=== PATIENT | male | born 1995 | race Hispanic/Latino ===

== ENCOUNTER 2016-09-01 11:13 | Emergency (ER) | payer OTHER ==
--- NOTE | 2016-09-01 11:56 | EDDOCDS ---
Nurse's Notes [facility] Name: Basil Roca Age: 21 yrs Sex: Male : 1995 Arrival Date: 09/01/2016 Time: 11:13 Bed Triage 1 Private MD: Elisabeth [facility] Diagnosis: Concussion without loss of consciousness Presentation: 09/01 11:20 Presenting complaint: Patient states: hit my head on a trailer yesterday. no LOC. has srm major headache, dizzy and couldn't stand up straight. felt like the tub was moving when showering this am and photophobia. This patient has no additional risk factors. Mechanism of Injury: resulted from impacting a hard surface. Adult Sepsis Screening: The patient does not have new or worsening altered mentation. Patient's respiratory rate is less than 22. Systolic blood pressure is greater than 100. Patient has a qSOFA score of 0- Negative Sepsis Screen. Suicide/Homicide risk assessment- the patient denies having any suicidal and/or homicidal ideations and does not present with any other emotional, behavioral or mental health complaints. 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 Transition of care: Patient was received from [facility]. 11:20 Acuity: AMARA Level 4 srm 11:20 Method Of Arrival: Walkin/Carried/Asstd srm Triage Assessment: 11:22 General: Appears in no apparent distress, Behavior is appropriate for age, cooperative. srm Pain: Pain currently is 8 out of 10 on a pain scale. Pt Declines HIV testing. Neurological: Level of Consciousness is awake, alert, Oriented to person, place, Moves all extremities. Full function Gait is steady, Speech is normal, Facial symmetry appears normal, Reports dizziness, headache photophobia. Historical: - Allergies: no known allergies; - Home Meds: 1. none - PMHx: none; - PSHx: left leg; right arm; - Social history: Smoking status: Patient states former smoker of tobacco. No barriers to communication noted, The patient speaks fluent Kenyan, Speaks appropriately for age. - Family history: Not pertinent. - : The pt / caregiver states he / she is not on anticoagulants. Home medication list is obtained from the patient. - Exposure Risk Screening:: None identified. Screenin:53 Screening information is obtained from the patient. Fall risk: No risks identified. srm Assistance ADL's: requires no assistance with activities of daily living. Abuse/DV Screen: The patient / caregiver reports he/she is: not in a situation that causes fear, pain or injury. Nutritional screening: No deficits noted. Advance Directives: There is no active DNR order. home support is adequate. Assessment: 11:53 General: Appears in no apparent distress, Behavior is appropriate for age, cooperative. srm Neurological: Level of Consciousness is awake, alert, Oriented to person, place, time, Medical Biller Coder are equal bilaterally Moves all extremities. Full function Gait is steady, Speech is normal, Facial symmetry appears normal, Pupils are PERRLA. Respiratory: No deficits noted. GI: No deficits noted. Vital Signs: 11:16 BP 133 / 74; Pulse 79; Resp 18; Temp 96.1(O); Pulse Ox 100% on R/A; Weight 51.71 kg elp (R); Height 5 ft. 5 in. (165.10 cm) (R); Pain 8/10; 11:16 Body Mass Index 18.97 (51.71 kg, 165.10 cm) [facility] Vitals: 11:16 Log In Time: September 01, 2016 at 11:14. elp [place] Coma Score: 11:20 Eye Response: spontaneous(4). Verbal Response: oriented(5). Motor Response: obeys [facility] commands(6). Total: 15. ED Course: 11:15 Patient visited by Vivian Em PCA. elp 11:15 Elisabeth [facility] is Private Physician. elp 11:15 Patient moved to Waiting elp 11:16 Patient moved to Pre RCE elp 11:17 Patient visited by Vivian Em PCA. elp 11:22 Triage Initiated srm 11:23 Patient moved to Triage 1 srm 11:25 [facility]it Ramirez [facility] btw 11:25 Balta Herrera MD is Attending Physician. btw 11:25 Patient visited by Sumit Ramirez PA. btw 11:48 Scotty Ivey [facility] is Referral Physician. btw 11:53 The patient / caregiver is instructed regarding the plan of care and ED course. srm Accompanied by Friend, Patient has correct armband on for positive identification. 11:53 No IV's were initiated during this patient's visit. No procedures done that require srm assistance. Order Results: There are currently no results for this order. Outcome: 11:48 Discharge ordered by Provider. btw 11:53 Discharge Assessment: Patient awake, alert and oriented x 3. No cognitive and/or srm functional deficits noted. Patient verbalized understanding of disposition instructions. patient administered narcotics - no. The following High Risk Discharge criteria are identified: None. Discharged to home ambulatory, with friend. Condition: good Condition: stable. Discharge instructions given to patient, Instructed on discharge instructions, follow up and referral plans. medication usage, Demonstrated understanding of instructions, medications, Pt was receptive of discharge instructions/ teaching. Prescriptions given X 1. No special radiology studies were completed. Property :Personal belongings accompany Pt. 11:54 Patient left the ED. srm Signatures: Phyllis Vinson RN RN srm [place], Brandon, PA PA btw Vivian Em, MAYKEL DIRECTOR PRIVATE elp FRANCINE
--- NOTE | 2016-09-01 11:56 | EDDOCDS ---
Physician Documentation [facility] Name: Basil Roca Age: 21 yrs Sex: Male : 1995 Arrival Date: 09/01/2016 Time: 11:13 Bed Triage 1 Private MD: Elisabeth [facility] Disposition: 09/01/16 11:48 Discharged to Home/Self Care. Impression: Concussion without loss of consciousness. - Condition is Stable. - Discharge Instructions: Concussion, Adult, [id number]. - Prescriptions for Diclofenac Sodium 75 mg Oral Tablet, Delayed Release (E.C.) - take 1 tablet by ORAL route 2 times per day; 30 tablet. - Medication Reconciliation, Local Pharmacy Hours form. - Follow up: Scotty Ivey [facility]; When: Call to arrange an appointment; Reason: Further diagnostic work-up, Recheck today's complaints, Continuance of care. - Problem is new. - Symptoms are unchanged. Historical: - Allergies: no known allergies; - Home Meds: 1. none - PMHx: none; - PSHx: left leg; right arm; - Social history: Smoking status: Patient states former smoker of tobacco. No barriers to communication noted, The patient speaks fluent Divehi, Speaks appropriately for age. - Family history: Not pertinent. - : The pt / caregiver states he / she is not on anticoagulants. Home medication list is obtained from the patient. - Exposure Risk Screening:: None identified. Vital Signs: 09/01 11:16 BP 133 / 74; Pulse 79; Resp 18; Temp 96.1(O); Pulse Ox 100% on R/A; Weight 51.71 kg / elp 114 lbs (R); Height 5 ft. 5 in. (165.10 cm) (R); Pain 8/10; 11:16 Body Mass Index 18.97 (51.71 kg, 165.10 cm) elp [place] Coma Score: 11:20 Eye Response: spontaneous(4). Verbal Response: oriented(5). Motor Response: obeys srm commands(6). Total: 15. MDM: 11:50 Financial registration complete. lg Signatures: Phyllis Vinson RN RN srm [place], LoriLee, Juan Reg Sumit Maradiaga PA PA btw MTDD
--- NOTE | 2016-09-03 12:56 | EDDOCDS ---
Physician Documentation [facility] Name: Basil Roca Age: 21 yrs Sex: Male : 1995 Arrival Date: 09/01/2016 Time: 11:13 Bed Triage 1 Private MD: Elisabeth [facility] Disposition: 09/01/16 11:48 Discharged to Home/Self Care. Impression: Concussion without loss of consciousness. - Condition is Stable. - Discharge Instructions: Concussion, Adult, [id number]. - Prescriptions for Diclofenac Sodium 75 mg Oral Tablet, Delayed Release (E.C.) - take 1 tablet by ORAL route 2 times per day; 30 tablet. - Medication Reconciliation, Local Pharmacy Hours form. - Follow up: Scotty Ivey [facility]; When: Call to arrange an appointment; Reason: Further diagnostic work-up, Recheck today's complaints, Continuance of care. - Problem is new. - Symptoms are unchanged. Historical: - Allergies: no known allergies; - Home Meds: 1. none - PMHx: none; - PSHx: left leg; right arm; - Social history: Smoking status: Patient states former smoker of tobacco. No barriers to communication noted, The patient speaks fluent Latvian, Speaks appropriately for age. - Family history: Not pertinent. - : The pt / caregiver states he / she is not on anticoagulants. Home medication list is obtained from the patient. - Exposure Risk Screening:: None identified. Vital Signs: 09/01 11:16 BP 133 / 74; Pulse 79; Resp 18; Temp 96.1(O); Pulse Ox 100% on R/A; Weight 51.71 kg / elp 114 lbs (R); Height 5 ft. 5 in. (165.10 cm) (R); Pain 8/10; 11:16 Body Mass Index 18.97 (51.71 kg, 165.10 cm) elp [place] Coma Score: 11:20 Eye Response: spontaneous(4). Verbal Response: oriented(5). Motor Response: obeys srm commands(6). Total: 15. MDM: 11:50 Financial registration complete. lg 12:06 [facility] Payment Agreement was scanned into [employer] and attached to record. lg 09/02 10:25 T-Sheet-- Draft Copy was scanned into [employer] and attached to record. gb Signatures: Phyllis Vinson, RN RN srm Yue Wilburn, Reg Reg gb Concetta Bills, Reg Reg lg Sumit Ramirez PA PA btw The chart was reviewed and I authenticate all verbal orders and agree with the evaluation and treatment provided.Attachments: 09/01 12:06 [facility] Payment Agreement lg 09/02 10:25 T-Sheet-- Draft Copy gb Chart Complete MTDD
--- NOTE | 2016-09-03 12:56 | EDDOCDS ---
Nurse's Notes [facility] Name: Basil Roca Age: 21 yrs Sex: Male : 1995 Arrival Date: 09/01/2016 Time: 11:13 Bed Triage 1 Private MD: Elisabeth [facility] Diagnosis: Concussion without loss of consciousness Presentation: 09/01 11:20 Presenting complaint: Patient states: hit my head on a trailer yesterday. no LOC. has srm major headache, dizzy and couldn't stand up straight. felt like the tub was moving when showering this am and photophobia. This patient has no additional risk factors. Mechanism of Injury: resulted from impacting a hard surface. Adult Sepsis Screening: The patient does not have new or worsening altered mentation. Patient's respiratory rate is less than 22. Systolic blood pressure is greater than 100. Patient has a qSOFA score of 0- Negative Sepsis Screen. Suicide/Homicide risk assessment- the patient denies having any suicidal and/or homicidal ideations and does not present with any other emotional, behavioral or mental health complaints. 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 Transition of care: Patient was received from [facility]. 11:20 Acuity: AMARA Level 4 srm 11:20 Method Of Arrival: Walkin/Carried/Asstd srm Triage Assessment: 11:22 General: Appears in no apparent distress, Behavior is appropriate for age, cooperative. srm Pain: Pain currently is 8 out of 10 on a pain scale. Pt Declines HIV testing. Neurological: Level of Consciousness is awake, alert, Oriented to person, place, Moves all extremities. Full function Gait is steady, Speech is normal, Facial symmetry appears normal, Reports dizziness, headache photophobia. Historical: - Allergies: no known allergies; - Home Meds: 1. none - PMHx: none; - PSHx: left leg; right arm; - Social history: Smoking status: Patient states former smoker of tobacco. No barriers to communication noted, The patient speaks fluent Colombian, Speaks appropriately for age. - Family history: Not pertinent. - : The pt / caregiver states he / she is not on anticoagulants. Home medication list is obtained from the patient. - Exposure Risk Screening:: None identified. Screenin:53 Screening information is obtained from the patient. Fall risk: No risks identified. srm Assistance ADL's: requires no assistance with activities of daily living. Abuse/DV Screen: The patient / caregiver reports he/she is: not in a situation that causes fear, pain or injury. Nutritional screening: No deficits noted. Advance Directives: There is no active DNR order. home support is adequate. Assessment: 11:53 General: Appears in no apparent distress, Behavior is appropriate for age, cooperative. srm Neurological: Level of Consciousness is awake, alert, Oriented to person, place, time, Molded Grid And Parts Inspector are equal bilaterally Moves all extremities. Full function Gait is steady, Speech is normal, Facial symmetry appears normal, Pupils are PERRLA. Respiratory: No deficits noted. GI: No deficits noted. Vital Signs: 11:16 BP 133 / 74; Pulse 79; Resp 18; Temp 96.1(O); Pulse Ox 100% on R/A; Weight 51.71 kg elp (R); Height 5 ft. 5 in. (165.10 cm) (R); Pain 8/10; 11:16 Body Mass Index 18.97 (51.71 kg, 165.10 cm) [facility] Vitals: 11:16 Log In Time: September 01, 2016 at 11:14. elp [place] Coma Score: 11:20 Eye Response: spontaneous(4). Verbal Response: oriented(5). Motor Response: obeys [facility] commands(6). Total: 15. ED Course: 11:15 Patient visited by Vivian mE PCA. elp 11:15 Elisabeth [facility] is Private Physician. elp 11:15 Patient moved to Waiting elp 11:16 Patient moved to Pre RCE elp 11:17 Patient visited by Vivian Em PCA. elp 11:22 Triage Initiated srm 11:23 Patient moved to Triage 1 srm 11:25 Sumit Ramirez [facility]. btw 11:25 Balta Herrera MD is Attending Physician. btw 11:25 Patient visited by Sumit Ramirez PA. btw 11:48 Scotty Ivey [facility] is Referral Physician. btw 11:53 The patient / caregiver is instructed regarding the plan of care and ED course. srm Accompanied by Friend, Patient has correct armband on for positive identification. 11:53 No IV's were initiated during this patient's visit. No procedures done that require srm assistance. 12:06 [facility] Payment Agreement was scanned into [employer] and attached to record. lg 09/02 10:25 T-Sheet-- Draft Copy was scanned into [employer] and attached to record. gb Order Results: There are currently no results for this order. Outcome: 09/01 11:48 Discharge ordered by Provider. btw 11:53 Discharge Assessment: Patient awake, alert and oriented x 3. No cognitive and/or srm functional deficits noted. Patient verbalized understanding of disposition instructions. patient administered narcotics - no. The following High Risk Discharge criteria are identified: None. Discharged to home ambulatory, with friend. Condition: good Condition: stable. Discharge instructions given to patient, Instructed on discharge instructions, follow up and referral plans. medication usage, Demonstrated understanding of instructions, medications, Pt was receptive of discharge instructions/ teaching. Prescriptions given X 1. No special radiology studies were completed. Property :Personal belongings accompany Pt. 11:54 Patient left the ED. srm Signatures: Phyllis Vinson, RN RN srm Yue Wilburn, Reg Reg gb Concetta Bills, Reg Reg lg Sumit Ramirez PA PA btw Patchen, Vivian, FOCUS PULLER FOCUS PULLER elp Chart Complete MTDD
--- NOTE | 2016-09-03 12:56 | EDDOCDS ---
Physician Documentation [facility] Name: Basil Roca Age: 21 yrs Sex: Male : 1995 Arrival Date: 09/01/2016 Time: 11:13 Bed Triage 1 Private MD: Elisabeth [facility] Disposition: 09/01/16 11:48 Discharged to Home/Self Care. Impression: Concussion without loss of consciousness. - Condition is Stable. - Discharge Instructions: Concussion, Adult, [id number]. - Prescriptions for Diclofenac Sodium 75 mg Oral Tablet, Delayed Release (E.C.) - take 1 tablet by ORAL route 2 times per day; 30 tablet. - Medication Reconciliation, Local Pharmacy Hours form. - Follow up: Scotty Ivey [facility]; When: Call to arrange an appointment; Reason: Further diagnostic work-up, Recheck today's complaints, Continuance of care. - Problem is new. - Symptoms are unchanged. Historical: - Allergies: no known allergies; - Home Meds: 1. none - PMHx: none; - PSHx: left leg; right arm; - Social history: Smoking status: Patient states former smoker of tobacco. No barriers to communication noted, The patient speaks fluent [place], Speaks appropriately for age. - Family history: Not pertinent. - : The pt / caregiver states he / she is not on anticoagulants. Home medication list is obtained from the patient. - Exposure Risk Screening:: None identified. Vital Signs: 09/01 11:16 BP 133 / 74; Pulse 79; Resp 18; Temp 96.1(O); Pulse Ox 100% on R/A; Weight 51.71 kg / elp 114 lbs (R); Height 5 ft. 5 in. (165.10 cm) (R); Pain 8/10; 11:16 Body Mass Index 18.97 (51.71 kg, 165.10 cm) elp [place] Coma Score: 11:20 Eye Response: spontaneous(4). Verbal Response: oriented(5). Motor Response: obeys srm commands(6). Total: 15. MDM: 11:50 Financial registration complete. lg 12:06 [facility] Payment Agreement was scanned into [employer] and attached to record. lg 09/02 10:25 T-Sheet-- Draft Copy was scanned into [employer] and attached to record. gb Signatures: Phyllis Vinson, RN RN srm Yue Wilburn, Reg Reg gb Concetta Bills, Reg Reg lg Sumit Ramirez PA PA btw The chart was reviewed and I authenticate all verbal orders and agree with the evaluation and treatment provided.Attachments: 09/01 12:06 [facility] Payment Agreement lg 09/02 10:25 T-Sheet-- Draft Copy gb Chart Complete MTDD
== END 2016-09-01 11:54 | disposition home or self-care (01) ==
LOC: M ED 11:13
DX: S06.0X1A Concussion with loss of consciousness of 30 minutes or less, initial encounter (principal); W22.8XXA Striking against or struck by other objects, initial encounter; Y92.9 Unspecified place or not applicable; Y93.89 Activity, other specified; Y99.1 Military activity; Z87.891 Personal history of nicotine dependence

== ENCOUNTER → 2016-09-20 | Outpatient (CLI) | payer OTHER ==
--- NOTE | 2016-09-20 08:51 | REP ---
CT Head without contrast HISTORY: Trauma COMPARISON: None There is no intraparenchymal hemorrhage, acute infarct, mass or midline shift. The ventricular system is normal in appearance. There is no extra cerebral collection. There is no fracture. The visualized sinuses are clear. IMPRESSION: There is no intracranial lesion. Signed by Scott Osuna MD 09/20/2016 08:43 A
== END ==
LOC: M RAD 08:15
DX: S09.8XXD Other specified injuries of head, subsequent encounter (principal); R41.840 Attention and concentration deficit; R41.3 Other amnesia; G47.9 Sleep disorder, unspecified; X58.XXXD Exposure to other specified factors, subsequent encounter; Y92.89 Other specified places as the place of occurrence of the external cause

== ENCOUNTER 2016-10-18 12:19 | Inpatient (IN) | payer OTHER ==
[~2016-10-18] VITALS: Ht 165.1 cm; Wt 54.7 kg
[2016-10-18 13:01] LABS: CONTROL LINE INT CTR LINE PRESENT; METHADONE URINE NEGATIVE (NEGATIVE); TRICYCLIC ANTIDEPRESS URINE NEGATIVE (NEGATIVE)
[2016-10-18 13:02] LABS: MEAN CORPUSCULAR HEMOGLOBIN 20.7 pg (27.0-33.0); MEAN CORPUSCULAR HGB CONC 30.6 g/dl (32.0-36.5); MEAN CORPUSCULAR VOLUME 67.5 fl (80.0-96.0); RED CELL DISTRIBUTION WIDTH 14.7 % (11.5-14.5); WHITE BLOOD COUNT 5.7 K/mm3 (4.0-10.0)
[2016-10-18 13:17] LABS: ALBUMIN 4.4 GM/DL (3.2-5.2); ALBUMIN/GLOBULIN RATIO 1.38 (1.00-1.93); ALKALINE PHOSPHATASE 76 U/L (45-117); ALT/SGPT 41 U/L (12-78); ANION GAP 8 MEQ/L (8-16); AST/SGOT 16 U/L (15-37); BILIRUBIN,DIRECT < 0.1 MG/DL (0.0-0.2); BILIRUBIN,TOTAL 0.5 MG/DL (0.2-1.0); BLOOD UREA NITROGEN 11 MG/DL (7-18); CALCIUM LEVEL 9.6 MG/DL (8.5-10.1); CARBON DIOXIDE LEVEL 30 MEQ/L (21-32); CHLORIDE LEVEL 103 MEQ/L (98-107); CREATININE FOR GFR 0.88 MG/DL (0.70-1.30); GLOMERULAR FILTRATION RATE > 60.0 (>60); GLUCOSE, FASTING 109 MG/DL (70-105); POTASSIUM SERUM 4.4 MEQ/L (3.5-5.1); SODIUM LEVEL 141 MEQ/L (136-145); TOTAL PROTEIN 7.6 GM/DL (6.4-8.2)
[2016-10-18] MEDS ORDERED: MECLIZINE 12.5 MG TAB As Ordered ONE (13:44)
--- NOTE | 2016-10-18 15:54 | EDDOCDS ---
Physician Documentation [facility] Name: Basil Roca Age: 21 yrs Sex: Male : 1995 Arrival Date: 10/18/2016 Time: 12:19 Bed [facility] Private MD: Disposition: 10/18/16 14:25 Hospitalization ordered by Riddhi Andrade for Inpatient Admission. Preliminary diagnosis is Suicidal ideations. - Bed requested for Admit. - Status is Inpatient Admission. kpj - Condition is Stable. - Problem is new. - Symptoms are unchanged. Historical: - Allergies: no known allergies; - Home Meds: 1. none - PMHx: Depression; TBI; - PSHx: L leg; R arm; - Social history: No barriers to communication noted, The patient speaks fluent Romanian, Smoking status: Patient states was never smoker of tobacco. - Family history: Not pertinent. - : The pt / caregiver states he / she is not on anticoagulants. Home medication list is obtained from the patient. - Exposure Risk Screening:: None identified. Vital Signs: 10/18 12:21 BP 118 / 72; Pulse 66; Resp 18; Temp 96.7; Pulse Ox 100% ; Weight 51.71 kg / 114 lbs; ms18 Height 5 ft. 5 in. (165.10 cm); Pain 0/10; 15:49 BP 126 / 78; Pulse 61; Resp 16; Temp 98.5(O); Pulse Ox 99% on R/A; Pain 0/10; kpj 12:21 Body Mass Index 18.97 (51.71 kg, 165.10 cm) ms18 MDM: 12:31 Consult PFS/PSA/Tissue Coordinator ordered. sd1 12:31 Consult PFS/PSA/Tissue Coordinator: Patient's case requires discussion with on-call sd1 Psychiatrist ordered. 12:31 PSA/PFS to call Nursing Press Maintainer, to enter patient data on [place] Safe Act if patient sd1 involuntarily admitted or transferred for SI or HI ordered. 12:31 Confirm accurate psychiatric medication list and times of last dosage ordered. sd1 12:31 Detain Pt Until Medically/PFS Cleared ordered. sd1 12:32 Acetaminophen Level Ordered. EDMS 12:32 Basic Metabolic Profile Ordered. EDMS 12:32 Complete Blood Count Ordered. EDMS 12:32 Drug Eval Toxicology ED Only Ordered. EDMS 12:32 Ethyl Alcohol (ethanol) Ordered. EDMS 12:32 Liver Profile Ordered. EDMS 12:32 Salicylate Level Ordered. EDMS 12:32 Thyroid Stimulating Hormone Ordered. EDMS 12:48 REGULAR DIET PLASTIC SHARPE+DIET ordered. EDMS 13:18 Fingerstick Blood Sugar Ordered. EDMS 13:35 Acetaminophen Level Reviewed. sd1 13:35 Basic Metabolic Profile Reviewed. sd1 13:35 Complete Blood Count Reviewed. sd1 13:35 Salicylate Level Reviewed. sd1 13:35 Drug Eval Toxicology ED Only Reviewed. sd1 13:35 Ethyl Alcohol (ethanol) Reviewed. sd1 13:35 Liver Profile Reviewed. sd1 13:35 Thyroid Stimulating Hormone Reviewed. sd1 13:35 Fingerstick Blood Sugar Reviewed. sd1 13:35 Meclizine 50 mg PO once ordered. sd1 13:57 Consult PFS/PSA/Tissue Coordinator complete. jfb 13:57 Consult PFS/PSA/Tissue Coordinator: Patient's case requires discussion with on-call jfb Psychiatrist complete. 13:57 PSA/PFS to call Nursing Press Maintainer, to enter patient data on [place] Safe Act if patient jfb involuntarily admitted or transferred for SI or HI complete. 14:40 Admit to [facility]: ordered. EDMS 14:54 Financial registration complete. lg 15:00 E Legal paperwork was scanned into [employer] and attached to record. [facility] 15:21 [facility] Payment Agreement was scanned into [employer] and attached to record. lg Administered Medications: 13:59 Drug: Meclizine 50 mg [meclizine 12.5 mg tablet (4 tabs)] Route: PO; mlb1 Signatures: Dispatcher [employer] EDKaren Hernandez MD MD sd1 Sue Xavier, RN RN kpj Concetta Bills, Juan Reg lg Isa Baires, PSA PSA jfb Niyah Culp RN RN ms18 Saroj Collins RN mlb1 The chart was reviewed and I authenticate all verbal orders and agree with the evaluation and treatment provided.Attachments: 15:21 [facility] Payment Agreement lg MTDD
--- NOTE | 2016-10-18 15:54 | EDDOCDS ---
Nurse's Notes [facility] Name: Basil Roca Age: 21 yrs Sex: Male : 1995 Arrival Date: 10/18/2016 Time: 12:19 Bed [facility] Private MD: Diagnosis: Suicidal ideations Presentation: 10/18 12:21 Presenting complaint: Patient states: that he has had suicidal thoughts this past ms18 weekend. Mental Health Triage Level: Level 2: The patient displays active suicidal ideations. Adult Sepsis Screening: The patient does not have new or worsening altered mentation. Patient's respiratory rate is less than 22. Systolic blood pressure is greater than 100. Patient has a qSOFA score of 0- Negative Sepsis Screen. Suicide/Homicide risk assessment- The patient admits to and/or has been reported to be having suicidal ideations. 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 Transition of care: patient was not received from another setting of care. 12:21 Acuity: AMARA Level 3 ms18 12:21 Method Of Arrival: Ambulance ms18 Triage Assessment: 12:21 General: Appears in no apparent distress, comfortable, Behavior is appropriate for age, ms18 cooperative. Pain: Denies pain. HIV screening NA for this visit Offered previously. The patient is triaged at the bedside. See Assessment in Nurses Notes section of ED record. Neurological: Level of Consciousness is awake, alert, obeys commands, Oriented to person, place, time. Respiratory: Airway is patent Respiratory effort is even, unlabored. Derm: Skin is pink, warm & dry. normal. Historical: - Allergies: no known allergies; - Home Meds: 1. none - PMHx: Depression; TBI; - PSHx: L leg; R arm; - Social history: No barriers to communication noted, The patient speaks fluent Mongolian, Smoking status: Patient states was never smoker of tobacco. - Family history: Not pertinent. - : The pt / caregiver states he / she is not on anticoagulants. Home medication list is obtained from the patient. - Exposure Risk Screening:: None identified. Screenin:41 Screening information is obtained from the patient. Fall risk: No risks identified. ms18 Assistance ADL's: requires no assistance with activities of daily living. Abuse/DV Screen: The patient / caregiver reports he/she is: not in a situation that causes fear, pain or injury. Nutritional screening: No deficits noted. Advance Directives: There is no living will. home support is adequate. Assessment: 12:41 General: Appears in no apparent distress, comfortable, Behavior is cooperative, quiet, ms18 Pt was sitting up on the bed with his feet on the floor. While taking the pt's blood, the pt became diaphoretic and passed out. Pt went backwards and bumped his head on the wall. Pt's feet were moved into bed and the pt then rolled over on his side and began crying. Dr. Chavez aware of this. Pt awake and oriented at this time. Will continue to monitor pt.. Pain: Denies pain. Neurological: Level of Consciousness is awake, alert, obeys commands, Oriented to person, place, time. Respiratory: Airway is patent Respiratory effort is even, unlabored. Derm: Skin is pink, warm & dry. 13:37 General: Appears in no apparent distress, comfortable, Behavior is appropriate for age, ms18 cooperative. Pain: Denies pain. Neurological: Reports dizziness, headache. Cardiovascular: Chest pain is denied. Respiratory: Airway is patent Respiratory effort is even, unlabored, Respiratory pattern is regular, symmetrical. Derm: Skin is intact, Skin is diaphoretic, Skin is pink, Skin temperature is warm. 14:30 Reassessment: Patient appears in no apparent distress at this time. Patient denies pain hs1 at this time. refused lunch,states not hungry. Pt's escort in room with pt.. 15:49 General: Appears in no apparent distress, well nourished, well groomed, Behavior is kpj cooperative, flat, quiet. Pain: Denies pain. Neurological: Level of Consciousness is awake, alert, Oriented to person, place, time. Cardiovascular: Chest pain is denied. Respiratory: Airway is patent Respiratory effort is even, unlabored, Respiratory pattern is regular, symmetrical. Derm: Skin is intact, Skin is pink, warm & dry. Musculoskeletal: No deficits noted. 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 [facility] Behavioral Health: scott The patient is not an established patient of [facility] Behavioral Health. Referral Information: Evaluation referral is generated by the patient's therapist Psychologist Dr. Evin Xiong via [facility]. The patient was referred for evaluation because PT +SI. 13:57 Subjective: The patients chief complaint is PT was sent to ED after he presented as a jfb walk to the clinic. PT states he was very depressed Sunday and at one point he went to grab a knife but then "I just broke down crying" and then he went to bed. When asked why he presented to [facility] as opposed to earlier in the week he appeared confused and could not answer. PT states main stressor is missing parents who when he was 14. PT's father killed his mother and then committed suicide. PT states that he has had two TBI's one in August and one in September and it does cause him some confusion. 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 PT cannot CFS at this time and has presented for admission. . Delusions are denied. Patient's mood is depressed, Hallucinations are denied. Mental Health history: depression, suicide attempt by age 14 grabbed a knife to kill himself and someone stopped him. He was hospitalized at that time. gesture by over the weekend he reached for a knife and then stopped himself Mental Health Admissions: age 14 in [place] Current Outpatient Mental Health Services: None. Current living environment is The patient currently lives in a [facility]. Patient presents to Emergency Department with the following symptoms within the past 2 weeks: decreased appetite, depressed mood, poor concentration, sleep disturbance - insomnia, suicidal ideation with plan for cutting. Substance abuse: Pt denies. Mental status exam: Patients appearance is appropriate, Patient's behavior is cooperative, Speech is normal. Affect is flat. Mood is depressed. Hallucinations are denied. Appetite is poor. Memory is good. Energy level is normal. Content of thought is depressive. cannot CFS Thought process is intact. Cognitive level is oriented to person, place, time and situation Patient's insight is fair. Judgement is fair. Rapport with interviewer is good. Suicidal Ideation is denied. Homicidal ideation is denied. Vital Signs: 12:21 BP 118 / 72; Pulse 66; Resp 18; Temp 96.7; Pulse Ox 100% ; Weight 51.71 kg; Height 5 ms18 ft. 5 in. (165.10 cm); Pain 0/10; 15:49 BP 126 / 78; Pulse 61; Resp 16; Temp 98.5(O); Pulse Ox 99% on R/A; Pain 0/10; kpj 12:21 Body Mass Index 18.97 (51.71 kg, 165.10 cm) ms18 Vitals: 12:21 Log In Time N/A - ambulance arrival. ms18 ED Course: 12:20 Patient visited by Concetta Bills Reg. lg 12:20 Patient moved to Waiting lg 12:20 Patient moved to 31 kpj 12:21 Karen Bradshaw MD is Attending Physician. sd1 12:21 Patient visited by Karen Bradshaw MD. sd1 12:23 Triage Initiated ms18 12:30 Psych Safety Check: Visual Assessment: Restless. amw 12:33 Patient visited by Zainab Chance PCA. amw 12:40 Acetaminophen Level Sent. ms18 12:40 Basic Metabolic Profile Sent. ms18 12:40 Complete Blood Count Sent. ms18 12:40 Drug Eval Toxicology ED Only Sent. ms18 12:40 Ethyl Alcohol (ethanol) Sent. ms18 12:40 Liver Profile Sent. ms18 12:40 Salicylate Level Sent. ms18 12:40 Thyroid Stimulating Hormone Sent. ms18 12:41 The patient / caregiver is instructed regarding the plan of care and ED course. Patient ms18 has correct armband on for positive identification. Placed in gown. Placed in psych safe attire. Bed in low position. Side rails up X2. Property secured in belongings bag- placed in locked locker. 12:41 No IV's were initiated during this patient's visit. ms18 12:44 Psych Safety Check: Visual Assessment: Restless. amw 12:45 Patient visited by Zainab Chance PCA. amw 13:00 Psych Safety Check: Visual Assessment: Restless. amw 13:13 Patient visited by Zainab Chance PCA. amw 13:15 Psych Safety Check: Visual Assessment: Restless. amw 13:16 Patient visited by Zainab Chance PCA. amw 13:28 Patient visited by Zainab Chance PCA. amw 13:37 Patient visited by Niyah Culp RN. ms18 13:46 Patient visited by Zainab Chance PCA. amw 14:00 Patient visited by Zainab Cahnce PCA. amw 14:25 Riddhi Andrade is Hospitalizing Provider. sd1 14:29 [address] 15:00 [facility] Legal paperwork was scanned into [facility] and attached to record. jfb 15:21 Patient name changed from Basil\\S\\\\S\\Roca\\S\\ to Basil\\S\\ \\S\\Roca. EDMS 15:21 [facility] Payment Agreement was scanned into [facility] and attached to record. lg 15:49 Resting quietly. kpj 15:49 The patient / caregiver is instructed regarding the plan of care and ED course. Placed kpj in psych safe attire. Security observing. 15:49 No procedures done that require assistance. [facility] Administered Medications: 13:59 Drug: Meclizine 50 mg [meclizine 12.5 mg tablet (4 tabs)] Route: PO; mlb1 Attachments: 15:00 [facility] Legal paperwork jfb Order Results: Lab Order: Acetaminophen Level; SPEC'M 10/18/16 12:30 Test: ACETAMINOPHEN LEVEL; Value: < 2.0; Range: 10.0-30.0; Abnormal: Below low normal; Units: UG/ML; Status: F Lab Order: Basic Metabolic Profile; SPEC'M 10/18/16 12:30 Test: GLUCOSE, FASTING; Value: 109; Range: 70-105; Abnormal: Above high normal; Units: MG/DL; Status: F Test: BLOOD UREA NITROGEN; Value: 11; Range: 7-18; Units: MG/DL; Status: F Test: CREATININE FOR GFR; Value: 0.88; Range: 0.70-1.30; Units: MG/DL; Status: F Test: GLOMERULAR FILTRATION RATE; Value: > 60.0; Range: >60; Status: F Test: SODIUM LEVEL; Value: 141; Range: 136-145; Units: MEQ/L; Status: F Test: POTASSIUM SERUM; Value: 4.4; Range: 3.5-5.1; Units: MEQ/L; Status: F Test: CHLORIDE LEVEL; Value: 103; Range: 98-107; Units: MEQ/L; Status: F Test: CARBON DIOXIDE LEVEL; Value: 30; Range: 21-32; Units: MEQ/L; Status: F Test: ANION GAP; Value: 8; Range: 8-16; Units: MEQ/L; Status: F Test: CALCIUM LEVEL; Value: 9.6; Range: 8.5-10.1; Units: MG/DL; Status: F Test Note: ; Units are mL/min/1.73 m2 Chronic Kidney Disease Staging per NKF: Stage I & II GFR >=60 Normal to Mildly Decreased Stage III GFR 30-59 Moderately Decreased Stage IV GFR 15-29 Severely Decreased Stage V GFR <15 Very Little GFR Left ESRD GFR <15 on PATTERN WORKER Lab Order: Complete Blood Count; SPEC'10/18/16 12:30 Test: WHITE BLOOD COUNT; Value: 5.7; Range: 4.0-10.0; Units: K/mm3; Status: F Test: RED BLOOD COUNT; Value: 6.53; Range: 4.30-6.10; Abnormal: Above high normal; Units: M/mm3; Status: F Test: HEMOGLOBIN; Value: 13.5; Range: 14.0-18.0; Abnormal: Below low normal; Units: g/dl; Status: F Test: HEMATOCRIT; Value: 44.1; Range: 42.0-52.0; Units: %; Status: F Test: MEAN CORPUSCULAR VOLUME; Value: 67.5; Range: 80.0-96.0; Abnormal: Below low normal; Units: fl; Status: F Test: MEAN CORPUSCULAR HEMOGLOBIN; Value: 20.7; Range: 27.0-33.0; Abnormal: Below low normal; Units: pg; Status: F Test: MEAN CORPUSCULAR HGB CONC; Value: 30.6; Range: 32.0-36.5; Abnormal: Below low normal; Units: g/dl; Status: F Test: RED CELL DISTRIBUTION WIDTH; Value: 14.7; Range: 11.5-14.5; Abnormal: Above high normal; Units: %; Status: F Test: PLATELET COUNT, AUTOMATED; Value: 303; Range: 150-450; Units: k/mm3; Status: F Lab Order: Drug Eval Toxicology ED Only; SPEC10/18/16 12:30 Test: AMPHETAMINES LEVEL URINE; Value: NEGATIVE; Range: NEGATIVE; Status: F Test: BARBITURATES URINE; Value: NEGATIVE; Range: NEGATIVE; Status: F Test: BENZODIAZEPINES URINE; Value: NEGATIVE; Range: NEGATIVE; Status: F Test: CANNABINOIDS URINE; Value: NEGATIVE; Range: NEGATIVE; Status: F Test: COCAINE METABOLITE URINE; Value: NEGATIVE; Range: NEGATIVE; Status: F Test: METHADONE URINE; Value: NEGATIVE; Range: NEGATIVE; Status: F Test: OPIATES URINE; Value: NEGATIVE; Range: NEGATIVE; Status: F Test: TRICYCLIC ANTIDEPRESS URINE; Value: NEGATIVE; Range: NEGATIVE; Status: F Test Note: ; ALL PRESUMPTIVE POSITIVE FINDINGS ARE UNCONFIRMED NORMAL VALUES THRESHOLD IN NG/ML AMPHETAMINES 1000 METHAMPHETAMINES 1000 BARBITURATES 300 BENZODIAZEPINES 300 CANNABINOIDS (THC) 50 COCAINE METABOLITE 300 METHADONE 300 OPIATES 300 PHENCYCLIDINE 25 TRICYCLIC ANTIDEPRESSANTS 1000 RESULTS ARE FOR MEDICAL PURPOSES ONLY. ALL URINE SPECIMENS WILL BE SAVED FOR 3 DAYS. IF CONFIRMATION OF A PRESUMPTIVE POSTIVE SCREEN RESULT IS DESIRED, CALL CHEMISTRY ([phone]) AND REQUEST URINE TO BE SENT TO REFERENCE LAB. FOR A LIST OF CLOSELY RELATED COMPOUNDS PLEASE CALL THE LAB. Lab Order: Ethyl Alcohol (ethanol); SPEC'M 10/18/16 12:30 Test: ETHYL ALCOHOL (ETHANOL); Value: < 0.003; Range: 0.000-0.010; Units: %; Status: F Lab Order: Liver Profile; SPEC'M 10/18/16 12:30 Test: AST/SGOT; Value: 16; Range: 15-37; Units: U/L; Status: F Test: ALT/SGPT; Value: 41; Range: 12-78; Units: U/L; Status: F Test: ALKALINE PHOSPHATASE; Value: 76; Range: 45-117; Units: U/L; Status: F Test: BILIRUBIN,TOTAL; Value: 0.5; Range: 0.2-1.0; Units: MG/DL; Status: F Test: BILIRUBIN,DIRECT; Value: < 0.1; Range: 0.0-0.2; Units: MG/DL; Status: F Test: TOTAL PROTEIN; Value: 7.6; Range: 6.4-8.2; Units: GM/DL; Status: F Test: ALBUMIN; Value: 4.4; Range: 3.2-5.2; Units: GM/DL; Status: F Test: ALBUMIN/GLOBULIN RATIO; Value: 1.38; Range: 1.00-1.93; Status: F Lab Order: Salicylate Level; SPEC'M 10/18/16 12:30 Test: SALICYLATE LEVEL; Value: < 1.7; Range: 5.0-30.0; Abnormal: Below low normal; Units: MG/DL; Status: F Lab Order: Thyroid Stimulating Hormone; SPEC'M 10/18/16 12:30 Test: THYROID STIMULATING HORMONE; Value: 2.520; Range: 0.358-3.740; Units: uIU/ML; Status: F Lab Order: Fingerstick Blood Sugar; SPEC'M 10/18/16 13:11 Test: BEDSIDE GLUCOSE; Value: 90; Range: 70-105; Units: MG/DL; Status: F Outcome: 14:25 Decision to Hospitalize by Provider. sd1 15:49 Discharge Assessment: Patient awake, alert and oriented x 3. No cognitive and/or j functional deficits noted. Patient verbalized understanding of disposition instructions. patient administered narcotics - no. The following High Risk Discharge criteria are identified: None. Admitted to Psych accompanied by tech, via wheelchair, with chart. Condition: stable. No special radiology studies were completed. 15:53 Patient left the ED. [facility] Signatures: Dispatcher [employer] EDMS Karen Bradshaw MD MD sd1 Sue Xavier, RN RN j Concetta Bills Reg Reg lg Barney, Michael B, RN RN mlb1 Isa Baires, NASH PSA Ashanti Srinivasan, RN RN hs1 Zainab Chance, LEAD GAME DESIGNER LEAD GAME DESIGNER Niyah Candelaria,RN RN ms18 MTDD
[2016-10-18 16:00] VITALS: BP 117/75
[2016-10-18] MEDS ORDERED: ACETAMINOPHEN TAB 650MG DOSE (2X325MG) PO PRN (17:00)
[2016-10-18] MEDS ORDERED: MOM 30ML SUSPENSION UDC PO PRN (17:00)
[2016-10-18] MEDS ORDERED: MAALOX 30 ML SUSP *UDC PO PRN (17:00)
[2016-10-19 06:32] VITALS: BP 104/59
--- NOTE | 2016-10-19 11:16 | HPEPDOC ---
Medical History and Physical Date of Admission Oct 18, 2016 at 16:10 History and Physical PCP: [facility] ATTENDING: Dr. Dudley Oshea HPI: 21yoM admitted to [facility] for unspecified depressive disorder, being medically examined today. No acute medical complaints today. It was documented in the emergency room record that the patient was sitting with his feet on the floor and while having his blood drawn he became diaphoretic and passed out. The patient went backwards and bumped his head on the wall. The patient's feet were moved into the bed and the patient then rolled over on his side and began crying. The patient was subsequently monitored. The patient has had no further presyncopal or syncopal events. Denies any fevers, chills, weakness, fatigue, CATHERINE, CP, SOB, cough, palpitations, abdominal pain, N/V/D or changes in bowel or bladder habits. PMHx: Depression H/O SI History of TBI 09/12, 2 at work, no LOC. -follows with [place] [facility] 09/12 No acute abn. 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 Father: , suicide. Siblings: 4 brothers Alive, unknown Children: None Unexpected deaths due to medical reasons: None. ROS: As noted in HPI, otherwise 11pt ROS of systems reviewed and unremarkable PE: GEN: 21yoM, appears stated age. Well-nourished, well developed. No acute distress. Alert and oriented x 3. Pleasant, interactive. HEENT: Normocephalic, atraumatic. Pupils are equal, round, and reactive to light. Extraocular movements are intact. No nystagmus appreciated. Sclera are nonicteric. Conjunctiva without injection. Nose midline. Nasal turbinates without bogginess. EACs both patent BL. TMs both visualized and [place] with good cone of light, no bulging or erythema. No facial asymmetry. Moist mucous membranes. Dentition fair. Pharynx pink and moist, no cobblestoning. Neck supple , trachea midline. No lymphadenopathy or thyromegaly appreciated. CHEST: Regular rate and rhythm, +S1, +S2 LUNGS: Clear to auscultation bilaterally. No wheezes, rales, or rhonchi. Breathing appears symmetric and easy. Patient is speaking in full sentences. No accessory muscle use. ABD: Round, soft, non-tender, non-distended. +Bowel sounds throughout. No rebound or guarding. No costovertebral angle tenderness. EXT: Pulses 2+ bilaterally dorsalis pedis and radial. No lower extremity edema appreciated. SKIN: [place], dry, warm. Capillary refill <2sec. No rashes. NEURO: Alert and oriented x 3. Cranial nerves III-XII are intact. No focal deficits appreciated. EKG: pending A&P: 21yoM admitted to [facility] for unspecified depressive disorder 1. Psych. Plan per Psychiatry. Obtain baseline EKG to assure the safety of psychiatric medications as they can prolong the QT interval. 2. History of TBI. [facility]s [facility]. 3. Follow up with PCP on discharge. [facility]. 4. Mild anemia. Check Fe studies/B12/folate. 5. Staff member present throughout exam, aj Deluca. Vital Signs Vital Signs Label Value Date Time Patient Temperature 95.8 degrees F 10/19/16 0632 Temperature Source Tympanic 10/19/16 0632 Pulse 77 10/19/16 0632 Respiratory Rate 18 bpm 10/19/16 0632 Blood Pressure Assessment 104/59 (74) 10/19/16 0632 Laboratory Data Labs 24H Laboratory Tests 2 10/18/16 12:30: Acetaminophen Level < 2.0L, Aspartate Amino Transf (AST/SGOT) 16, Alanine Aminotransferase (ALT/SGPT) 41, Alkaline Phosphatase 76, Total Bilirubin 0.5, Direct Bilirubin < 0.1, Albumin 4.4, Albumin/Globulin Ratio 1.38, Anion Gap 8, Calcium Level 9.6, Ethyl Alcohol Level < 0.003, Glomerular Filtration Rate > 60.0, Salicylates Level < 1.7L, Thyroid Stimulating Hormone (TSH) 2.520, Total Protein 7.6, Urine Amphetamines Screen NEGATIVE, Urine Benzodiazepines Screen NEGATIVE, Urine Opiates Screen NEGATIVE, Urine Barbiturates Screen NEGATIVE, Urine Cannabinoids Screen NEGATIVE, Urine Cocaine Metabolite Screen NEGATIVE, Urine Methadone Screen NEGATIVE, Urine Tricyclic Antidepressants NEGATIVE 10/18/16 13:11: Bedside Glucose (Misc Panel) 90 CBC/BMP Laboratory Tests 10/18/16 12:30 Red Blood Count 6.53 H, Mean Corpuscular Volume 67.5 L, Mean Corpuscular Hemoglobin 20.7 L, Mean Corpuscular Hemoglobin Concent 30.6 L, Red Cell Distribution Width 14.7 H Home Medications No Active Prescriptions or Reported Meds Allergies Coded Allergies: No Known Allergies (Unverified , 10/18/16) Risa Curry Oct 19, 2016 11:16
[2016-10-19 11:57] LABS: MEAN CORPUSCULAR HGB CONC 31.4 g/dl (32.0-36.5); MEAN CORPUSCULAR VOLUME 66.8 fl (80.0-96.0); RED CELL DISTRIBUTION WIDTH 14.8 % (11.5-14.5); WHITE BLOOD COUNT 7.2 K/mm3 (4.0-10.0)
--- NOTE | 2016-10-19 14:50 | ECGEPIP ---
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 Electronically Signed On 10-19-2016 14:50:27 EST by Dudley Montalvo
[2016-10-19 18:00] VITALS: BP 110/61
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
[2016-10-20 06:41] VITALS: BP 152/58
[2016-10-20] MEDS: SERTRALINE HCL 25 MG TABLET PO SCH (09:02)
[2016-10-20 11:48] LABS: FOLATE 10.5 NG/ML (>5.4)
[2016-10-20 12:11] LABS: PERCENT SATURATION 37.8 % (19.7-37.4)
[2016-10-20 15:00] LABS: REASON FOR REVIEW COMPREHENSIVE REVIEW
--- NOTE | 2016-10-20 16:54 | EDDOCDS ---
Physician Documentation [facility] Name: Basil Roca Age: 21 yrs Sex: Male : 1995 Arrival Date: 10/18/2016 Time: 12:19 Bed [facility] Private MD: Disposition: 10/18/16 14:25 Hospitalization ordered by Riddhi Andrade for Inpatient Admission. Preliminary diagnosis is Suicidal ideations. - Bed requested for Admit. - Status is Inpatient Admission. kpj - Condition is Stable. - Problem is new. - Symptoms are unchanged. Historical: - Allergies: no known allergies; - Home Meds: 1. none - PMHx: Depression; TBI; - PSHx: L leg; R arm; - Social history: No barriers to communication noted, The patient speaks fluent Georgian, Smoking status: Patient states was never smoker of tobacco. - Family history: Not pertinent. - : The pt / caregiver states he / she is not on anticoagulants. Home medication list is obtained from the patient. - Exposure Risk Screening:: None identified. Vital Signs: 10/18 12:21 BP 118 / 72; Pulse 66; Resp 18; Temp 96.7; Pulse Ox 100% ; Weight 51.71 kg / 114 lbs; ms18 Height 5 ft. 5 in. (165.10 cm); Pain 0/10; 15:49 BP 126 / 78; Pulse 61; Resp 16; Temp 98.5(O); Pulse Ox 99% on R/A; Pain 0/10; kpj 12:21 Body Mass Index 18.97 (51.71 kg, 165.10 cm) ms18 MDM: 12:31 Consult PFS/PSA/Sheet Metal Worker Supervisor ordered. sd1 12:31 Consult PFS/PSA/Sheet Metal Worker Supervisor: Patient's case requires discussion with on-call sd1 Psychiatrist ordered. 12:31 PSA/PFS to call Nursing Resource Conservationist, to enter patient data on [place] Safe [place] if patient sd1 involuntarily admitted or transferred for SI or HI ordered. 12:31 Confirm accurate psychiatric medication list and times of last dosage ordered. sd1 12:31 Detain Pt Until Medically/PFS Cleared ordered. sd1 12:32 Acetaminophen Level Ordered. EDMS 12:32 Basic Metabolic Profile Ordered. EDMS 12:32 Complete Blood Count Ordered. EDMS 12:32 Drug Eval Toxicology ED Only Ordered. EDMS 12:32 Ethyl Alcohol (ethanol) Ordered. EDMS 12:32 Liver Profile Ordered. EDMS 12:32 Salicylate Level Ordered. EDMS 12:32 Thyroid Stimulating Hormone Ordered. EDMS 12:48 REGULAR DIET PLASTIC SHARPE+DIET ordered. EDMS 13:18 Fingerstick Blood Sugar Ordered. EDMS 13:35 Acetaminophen Level Reviewed. sd1 13:35 Basic Metabolic Profile Reviewed. sd1 13:35 Complete Blood Count Reviewed. sd1 13:35 Salicylate Level Reviewed. sd1 13:35 Drug Eval Toxicology ED Only Reviewed. sd1 13:35 Ethyl Alcohol (ethanol) Reviewed. sd1 13:35 Liver Profile Reviewed. sd1 13:35 Thyroid Stimulating Hormone Reviewed. sd1 13:35 Fingerstick Blood Sugar Reviewed. sd1 13:35 Meclizine 50 mg PO once ordered. sd1 13:57 Consult PFS/PSA/Sheet Metal Worker Supervisor complete. jfb 13:57 Consult PFS/PSA/Sheet Metal Worker Supervisor: Patient's case requires discussion with on-call jfb Psychiatrist complete. 13:57 PSA/PFS to call Nursing Resource Conservationist, to enter [place] data [place] if patient jfb involuntarily admitted or transferred for SI or HI complete. 14:40 Admit to [facility]: ordered. EDMS 14:54 Financial registration complete. lg 15:00 E Legal paperwork was scanned into [employer] and attached to record. [facility] 15: [facility] Payment Agreement was scanned into [employer] and attached to record. 10/19 19:26 T-Sheet-- Draft Copy was scanned into [employer] and attached to record. klr Administered Medications: 10/18 13:59 Drug: Meclizine 50 mg [meclizine 12.5 mg tablet (4 tabs)] Route: PO; mlb1 Signatures: Dispatcher [employer] EDMS Karen Bradshaw MD MD sd1 Sue Xavier RN RN Concetta Shelton Reg Reg lg Bush, Julie PSA PSA jfb Niyah Culp RN RN ms18 Danielle Pinto Michael B RN mlb1 The chart was reviewed and I authenticate all verbal orders and agree with the evaluation and treatment provided.Attachments: 15:21 [facility] [place] Agreement lg 02/23 19:26 T-Sheet-- Draft Copy klr Chart Complete MTDD
--- NOTE | 2016-10-20 16:54 | EDDOCDS ---
Physician Documentation [facility] Name: Basil Roca Age: 21 yrs Sex: Male : 1995 Arrival Date: 10/18/2016 Time: 12:19 Bed [facility] Private MD: Disposition: 10/18/16 14:25 Hospitalization ordered by Riddhi Andrade for Inpatient Admission. Preliminary diagnosis is Suicidal ideations. - Bed requested for Admit. - Status is Inpatient Admission. kpj - Condition is Stable. - Problem is new. - Symptoms are unchanged. Historical: - Allergies: no known allergies; - Home Meds: 1. none - PMHx: Depression; TBI; - PSHx: L leg; R arm; - Social history: No barriers to communication noted, The patient speaks fluent Samoan, Smoking status: Patient states was never smoker of tobacco. - Family history: Not pertinent. - : The pt / caregiver states he / she is not on anticoagulants. Home medication list is obtained from the patient. - Exposure Risk Screening:: None identified. Vital Signs: 10/18 12:21 BP 118 / 72; Pulse 66; Resp 18; Temp 96.7; Pulse Ox 100% ; Weight 51.71 kg / 114 lbs; ms18 Height 5 ft. 5 in. (165.10 cm); Pain 0/10; 15:49 BP 126 / 78; Pulse 61; Resp 16; Temp 98.5(O); Pulse Ox 99% on R/A; Pain 0/10; kpj 12:21 Body Mass Index 18.97 (51.71 kg, 165.10 cm) ms18 MDM: 12:31 Consult PFS/PSA/Master Ship ordered. sd1 12:31 Consult PFS/PSA/Master Ship: Patient's case requires discussion with on-call sd1 Psychiatrist ordered. 12:31 PSA/PFS to call Nursing Mixing Plant Operator, to enter [place] data [place] if patient sd1 involuntarily admitted or transferred for SI or HI ordered. 12:31 Confirm accurate psychiatric medication list and times of last dosage ordered. sd1 12:31 Detain Pt Until Medically/PFS Cleared ordered. sd1 12:32 Acetaminophen Level Ordered. EDMS 12:32 Basic Metabolic Profile Ordered. EDMS 12:32 Complete Blood Count Ordered. EDMS 12:32 Drug Eval Toxicology ED Only Ordered. EDMS 12:32 Ethyl Alcohol (ethanol) Ordered. EDMS 12:32 Liver Profile Ordered. EDMS 12:32 Salicylate Level Ordered. EDMS 12:32 Thyroid Stimulating Hormone Ordered. EDMS 12:48 REGULAR DIET PLASTIC SHARPE+DIET ordered. EDMS 13:18 Fingerstick Blood Sugar Ordered. EDMS 13:35 Acetaminophen Level Reviewed. sd1 13:35 Basic Metabolic Profile Reviewed. sd1 13:35 Complete Blood Count Reviewed. sd1 13:35 Salicylate Level Reviewed. sd1 13:35 Drug Eval Toxicology ED Only Reviewed. sd1 13:35 Ethyl Alcohol (ethanol) Reviewed. sd1 13:35 Liver Profile Reviewed. sd1 13:35 Thyroid Stimulating Hormone Reviewed. sd1 13:35 Fingerstick Blood Sugar Reviewed. sd1 13:35 Meclizine 50 mg PO once ordered. sd1 13:57 Consult PFS/PSA/Master Ship complete. jfb 13:57 Consult PFS/PSA/Master Ship: Patient's case requires discussion with on-call jfb Psychiatrist complete. 13:57 PSA/PFS to call Nursing Mixing Plant Operator, to [place] data [place] if patient jfb involuntarily admitted or transferred for SI or HI complete. 14:40 Admit to [facility]: ordered. EDMS 14:54 Financial registration complete. lg 15:00 E Legal paperwork was scanned into [employer] and attached to record. [facility] 15: [facility] Payment Agreement was scanned into [employer] and attached to record. 10/19 19:26 T-Sheet-- Draft Copy was scanned into [employer] and attached to record. klr Administered Medications: 10/18 13:59 Drug: Meclizine 50 mg [meclizine 12.5 mg tablet (4 tabs)] Route: PO; mlb1 Signatures: Dispatcher [employer] EDMS Karen Bradshaw MD MD sd1 Sue Xavier RN RN Concetta Shelton Reg Reg lg Bush, Julie PSA PSA jfb Niyah Culp RN RN ms18 Danielle Pinto Michael B RN mlb1 The chart was reviewed and I authenticate all verbal orders and agree with the evaluation and treatment provided.Attachments: 15:21 [facility] [place] Agreement lg 02/23 19:26 T-Sheet-- Draft Copy klr Chart Complete MTDD
--- NOTE | 2016-10-20 16:54 | EDDOCDS ---
Nurse's Notes [facility] Name: Basil Roca Age: 21 yrs Sex: Male : 1995 Arrival Date: 10/18/2016 Time: 12:19 Bed [facility] Private MD: Diagnosis: Suicidal ideations Presentation: 10/18 12:21 Presenting complaint: Patient states: that he has had suicidal thoughts this past ms18 weekend. Mental Health Triage Level: Level 2: The patient displays active suicidal ideations. Adult Sepsis Screening: The patient does not have new or worsening altered mentation. Patient's respiratory rate is less than 22. Systolic blood pressure is greater than 100. Patient has a qSOFA score of 0- Negative Sepsis Screen. Suicide/Homicide risk assessment- The patient admits to and/or has been reported to be having suicidal ideations. 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 Transition of care: patient was not received from another setting of care. 12:21 Acuity: AMARA Level 3 ms18 12:21 Method Of Arrival: Ambulance ms18 Triage Assessment: 12:21 General: Appears in no apparent distress, comfortable, Behavior is appropriate for age, ms18 cooperative. Pain: Denies pain. HIV screening NA for this visit Offered previously. The patient is triaged at the bedside. See Assessment in Nurses Notes section of ED record. Neurological: Level of Consciousness is awake, alert, obeys commands, Oriented to person, place, time. Respiratory: Airway is patent Respiratory effort is even, unlabored. Derm: Skin is pink, warm & dry. normal. Historical: - Allergies: no known allergies; - Home Meds: 1. none - PMHx: Depression; TBI; - PSHx: L leg; R arm; - Social history: No barriers to communication noted, The patient speaks fluent Italian, Smoking status: Patient states was never smoker of tobacco. - Family history: Not pertinent. - : The pt / caregiver states he / she is not on anticoagulants. Home medication list is obtained from the patient. - Exposure Risk Screening:: None identified. Screenin:41 Screening information is obtained from the patient. Fall risk: No risks identified. ms18 Assistance ADL's: requires no assistance with activities of daily living. Abuse/DV Screen: The patient / caregiver reports he/she is: not in a situation that causes fear, pain or injury. Nutritional screening: No deficits noted. Advance Directives: There is no living will. home support is adequate. Assessment: 12:41 General: Appears in no apparent distress, comfortable, Behavior is cooperative, quiet, ms18 Pt was sitting up on the bed with his feet on the floor. While taking the pt's blood, the pt became diaphoretic and passed out. Pt went backwards and bumped his head on the wall. Pt's feet were moved into bed and the pt then rolled over on his side and began crying. Dr. Chavez aware of this. Pt awake and oriented at this time. Will continue to monitor pt.. Pain: Denies pain. Neurological: Level of Consciousness is awake, alert, obeys commands, Oriented to person, place, time. Respiratory: Airway is patent Respiratory effort is even, unlabored. Derm: Skin is pink, warm & dry. 13:37 General: Appears in no apparent distress, comfortable, Behavior is appropriate for age, ms18 cooperative. Pain: Denies pain. Neurological: Reports dizziness, headache. Cardiovascular: Chest pain is denied. Respiratory: Airway is patent Respiratory effort is even, unlabored, Respiratory pattern is regular, symmetrical. Derm: Skin is intact, Skin is diaphoretic, Skin is pink, Skin temperature is warm. 14:30 Reassessment: Patient appears in no apparent distress at this time. Patient denies pain hs1 at this time. refused lunch,states not hungry. Pt's escort in room with pt.. 15:49 General: Appears in no apparent distress, well nourished, well groomed, Behavior is kpj cooperative, flat, quiet. Pain: Denies pain. Neurological: Level of Consciousness is awake, alert, Oriented to person, place, time. Cardiovascular: Chest pain is denied. Respiratory: Airway is patent Respiratory effort is even, unlabored, Respiratory pattern is regular, symmetrical. Derm: Skin is intact, Skin is pink, warm & dry. Musculoskeletal: No deficits noted. 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 [facility]: scott The patient is not an established patient of [facility]. Referral Information: Evaluation referral is generated by the patient's therapist Psychologist Dr. Evni Xiong via [facility]. The patient was referred for evaluation because PT +SI. 13:57 Subjective: The patients chief complaint is PT was sent to ED after he presented as a jfb walk to the clinic. PT states he was very depressed Sunday and at one point he went to grab a knife but then "I just broke down crying" and then he went to bed. When asked why he presented to [facility] as opposed to earlier in the week he appeared confused and could not answer. PT states main stressor is missing parents who when he was 14. PT's father killed his mother and then committed suicide. PT states that he has had two TBI's one in August and one in September and it does cause him some confusion. 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 PT cannot CFS at this time and has presented for admission. . Delusions are denied. Patient's mood is depressed, Hallucinations are denied. Mental Health history: depression, suicide attempt by age 14 grabbed a knife to kill himself and someone stopped him. He was hospitalized at that time. gesture by over the weekend he reached for a knife and then stopped himself Mental Health Admissions: age 14 in [place] Current Outpatient Mental Health Services: None. Current living environment is The patient currently lives in a [facility] [place]. Patient presents to Emergency Department with the following symptoms within the past 2 weeks: decreased appetite, depressed mood, poor concentration, sleep disturbance - insomnia, suicidal ideation with plan for cutting. Substance abuse: Pt denies. Mental status exam: Patients appearance is appropriate, Patient's behavior is cooperative, Speech is normal. Affect is flat. Mood is depressed. Hallucinations are denied. Appetite is poor. Memory is good. Energy level is normal. Content of thought is depressive. cannot CFS Thought process is intact. Cognitive level is oriented to person, place, time and situation Patient's insight is fair. Judgement is fair. Rapport with interviewer is good. Suicidal Ideation is denied. Homicidal ideation is denied. 10/19 11:38 Disposition: Medically cleared for disposition by Karen Bradshaw MD Psychiatric jfb Consult is performed by phone with Dr Riddhi Andrade. [facility] Admission Criteria: The patient is experiencing suicidal ideation. The patient requires continuous observation and/or control to protect self, others or property. The patient's care requires a multi-modal treatment plan under close supervision and coordination due to the complexity and severity of the patient's symptoms. Legal Status: Patient's legal status will be Emergency admission: 39. DSM-V Differential Diagnosis: Unspecified Depressive Disorder (F32.9). Insurance Pre-Certification: Not Required, Angel. Vital Signs: 10/18 12:21 BP 118 / 72; Pulse 66; Resp 18; Temp 96.7; Pulse Ox 100% ; Weight 51.71 kg; Height 5 ms18 ft. 5 in. (165.10 cm); Pain 0/10; 15:49 BP 126 / 78; Pulse 61; Resp 16; Temp 98.5(O); Pulse Ox 99% on R/A; Pain 0/10; kpj 12:21 Body Mass Index 18.97 (51.71 kg, 165.10 cm) ms18 Vitals: 12:21 Log In Time N/A - ambulance arrival. ms18 ED Course: 12:20 Patient visited by Concetta Bills Reg. lg 12:20 Patient moved to Waiting lg 12:20 Patient moved to [facility] 12:21 Karen Bradshaw MD is Attending Physician. sd1 12:21 Patient visited by Karen Bradshaw MD. sd1 12:23 Triage Initiated ms18 12:30 Psych Safety Check: Visual Assessment: Restless. amw 12:33 Patient visited by Zainab Chance PCA. amw 12:40 Acetaminophen Level Sent. ms18 12:40 Basic Metabolic Profile Sent. ms18 12:40 Complete Blood Count Sent. ms18 12:40 Drug Eval Toxicology ED Only Sent. ms18 12:40 Ethyl Alcohol (ethanol) Sent. ms18 12:40 Liver Profile Sent. ms18 12:40 Salicylate Level Sent. ms18 12:40 Thyroid Stimulating Hormone Sent. ms18 12:41 The patient / caregiver is instructed regarding the plan of care and ED course. Patient ms18 has correct armband on for positive identification. Placed in gown. Placed in psych safe attire. Bed in low position. Side rails up X2. Property secured in belongings bag- placed in locked locker. 12:41 No IV's were initiated during this patient's visit. ms18 12:44 Psych Safety Check: Visual Assessment: Restless. amw 12:45 Patient visited by Zainab Chance PCA. amw 13:00 Psych Safety Check: Visual Assessment: Restless. amw 13:13 Patient visited by Zainab Chance PCA. amw 13:15 Psych Safety Check: Visual Assessment: Restless. amw 13:16 Patient visited by Zainab Chance MANAGER INVENTORY MANAGEMENT. amw 13:28 Patient visited by Zainab Chance MANAGER INVENTORY MANAGEMENT. amw 13:37 Patient visited by Niyah Culp RN. ms18 13:46 Patient visited by Zainab Chance PCA. amw 14:00 Patient visited by Zainab Chance PCA. amw 14:25 Riddhi Andrade is Hospitalizing Provider. sd1 14:29 Patient moved to [address] 15:00 E Legal paperwork was scanned into [employer] and attached to record. jfb 15:21 Patient name changed from Basil\\S\\\\S\\Roca\\S\\ to Basil\\S\\ \\S\\Roca. EDMS 15:21 [facility] Payment Agreement was scanned into [employer] and attached to record. lg 15:49 Resting quietly. kpj 15:49 The patient / caregiver is instructed regarding the plan of care and ED course. Placed [facility] in psych safe attire. Security observing. 15:49 No procedures done that require assistance. [facility] 10/19 19:26 T-Sheet-- Draft Copy was scanned into [employer] and attached to record. klr Administered Medications: 10/18 13:59 Drug: Meclizine 50 mg [meclizine 12.5 mg tablet (4 tabs)] Route: PO; mlb1 Attachments: 15:00 MHE Legal paperwork jfb Order Results: Lab Order: Acetaminophen Level; SPEC'M 10/18/16 12:30 Test: ACETAMINOPHEN LEVEL; Value: < 2.0; Range: 10.0-30.0; Abnormal: Below low normal; Units: UG/ML; Status: F Lab Order: Basic Metabolic Profile; SPEC'M 10/18/16 12:30 Test: GLUCOSE, FASTING; Value: 109; Range: 70-105; Abnormal: Above high normal; Units: MG/DL; Status: F Test: BLOOD UREA NITROGEN; Value: 11; Range: 7-18; Units: MG/DL; Status: F Test: CREATININE FOR GFR; Value: 0.88; Range: 0.70-1.30; Units: MG/DL; Status: F Test: GLOMERULAR FILTRATION RATE; Value: > 60.0; Range: >60; Status: F Test: SODIUM LEVEL; Value: 141; Range: 136-145; Units: MEQ/L; Status: F Test: POTASSIUM SERUM; Value: 4.4; Range: 3.5-5.1; Units: MEQ/L; Status: F Test: CHLORIDE LEVEL; Value: 103; Range: 98-107; Units: MEQ/L; Status: F Test: CARBON DIOXIDE LEVEL; Value: 30; Range: 21-32; Units: MEQ/L; Status: F Test: ANION GAP; Value: 8; Range: 8-16; Units: MEQ/L; Status: F Test: CALCIUM LEVEL; Value: 9.6; Range: 8.5-10.1; Units: MG/DL; Status: F Test Note: ; Units are mL/min/1.73 m2 Chronic Kidney Disease Staging per NKF: Stage I & II GFR >=60 Normal to Mildly Decreased Stage III GFR 30-59 Moderately Decreased Stage IV GFR 15-29 Severely Decreased Stage V GFR <15 Very Little GFR Left ESRD GFR <15 on 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 Lab Order: Complete Blood Count; [facility]' 10/18/16 12:30 Test: WHITE BLOOD COUNT; Value: 5.7; Range: 4.0-10.0; Units: K/mm3; Status: F Test: RED BLOOD COUNT; Value: 6.53; Range: 4.30-6.10; Abnormal: Above high normal; Units: M/mm3; Status: F Test: HEMOGLOBIN; Value: 13.5; Range: 14.0-18.0; Abnormal: Below low normal; Units: g/dl; Status: F Test: HEMATOCRIT; Value: 44.1; Range: 42.0-52.0; Units: %; Status: F Test: MEAN CORPUSCULAR VOLUME; Value: 67.5; Range: 80.0-96.0; Abnormal: Below low normal; Units: fl; Status: F Test: MEAN CORPUSCULAR HEMOGLOBIN; Value: 20.7; Range: 27.0-33.0; Abnormal: Below low normal; Units: pg; Status: F Test: MEAN CORPUSCULAR HGB CONC; Value: 30.6; Range: 32.0-36.5; Abnormal: Below low normal; Units: g/dl; Status: F Test: RED CELL DISTRIBUTION WIDTH; Value: 14.7; Range: 11.5-14.5; Abnormal: Above high normal; Units: %; Status: F Test: PLATELET COUNT, AUTOMATED; Value: 303; Range: 150-450; Units: k/mm3; Status: F Lab Order: Drug Eval Toxicology ED Only; SPEC'M 10/18/16 12:30 Test: AMPHETAMINES LEVEL URINE; Value: NEGATIVE; Range: NEGATIVE; Status: F Test: BARBITURATES URINE; Value: NEGATIVE; Range: NEGATIVE; Status: F Test: BENZODIAZEPINES URINE; Value: NEGATIVE; Range: NEGATIVE; Status: F Test: CANNABINOIDS URINE; Value: NEGATIVE; Range: NEGATIVE; Status: F Test: COCAINE METABOLITE URINE; Value: NEGATIVE; Range: NEGATIVE; Status: F Test: METHADONE URINE; Value: NEGATIVE; Range: NEGATIVE; Status: F Test: OPIATES URINE; Value: NEGATIVE; Range: NEGATIVE; Status: F Test: TRICYCLIC ANTIDEPRESS URINE; Value: NEGATIVE; Range: NEGATIVE; Status: F Test Note: ; ALL PRESUMPTIVE POSITIVE FINDINGS ARE UNCONFIRMED NORMAL VALUES THRESHOLD IN NG/ML AMPHETAMINES 1000 METHAMPHETAMINES 1000 BARBITURATES 300 BENZODIAZEPINES 300 CANNABINOIDS (THC) 50 COCAINE METABOLITE 300 METHADONE 300 OPIATES 300 PHENCYCLIDINE 25 TRICYCLIC ANTIDEPRESSANTS 1000 RESULTS ARE FOR MEDICAL PURPOSES ONLY. ALL URINE SPECIMENS WILL BE SAVED FOR 3 DAYS. IF CONFIRMATION OF A PRESUMPTIVE POSTIVE SCREEN RESULT IS DESIRED, CALL CHEMISTRY ([phone]) AND REQUEST URINE TO BE SENT TO REFERENCE LAB. FOR A LIST OF CLOSELY RELATED COMPOUNDS PLEASE CALL THE LAB. Lab Order: Ethyl Alcohol (ethanol); SPEC'M 10/18/16 12:30 Test: ETHYL ALCOHOL (ETHANOL); Value: < 0.003; Range: 0.000-0.010; Units: %; Status: F Lab Order: Liver Profile; SPEC'M 10/18/16 12:30 Test: AST/SGOT; Value: 16; Range: 15-37; Units: U/L; Status: F Test: ALT/SGPT; Value: 41; Range: 12-78; Units: U/L; Status: F Test: ALKALINE PHOSPHATASE; Value: 76; Range: 45-117; Units: U/L; Status: F Test: BILIRUBIN,TOTAL; Value: 0.5; Range: 0.2-1.0; Units: MG/DL; Status: F Test: BILIRUBIN,DIRECT; Value: < 0.1; Range: 0.0-0.2; Units: MG/DL; Status: F Test: TOTAL PROTEIN; Value: 7.6; Range: 6.4-8.2; Units: GM/DL; Status: F Test: ALBUMIN; Value: 4.4; Range: 3.2-5.2; Units: GM/DL; Status: F Test: ALBUMIN/GLOBULIN RATIO; Value: 1.38; Range: 1.00-1.93; Status: F Lab Order: Salicylate Level; [facility]' 10/18/16 12:30 Test: SALICYLATE LEVEL; Value: < 1.7; Range: 5.0-30.0; Abnormal: Below low normal; Units: MG/DL; Status: F Lab Order: Thyroid Stimulating Hormone; [facility] 10/18/16 12:30 Test: THYROID STIMULATING HORMONE; Value: 2.520; Range: 0.358-3.740; Units: uIU/ML; Status: F Lab Order: Fingerstick Blood Sugar; [facility] 10/18/16 13:11 Test: BEDSIDE GLUCOSE; Value: 90; Range: 70-105; Units: MG/DL; Status: F Outcome: 10/18 14:25 Decision to Hospitalize by Provider. sd1 15:49 Discharge Assessment: Patient awake, alert and oriented x 3. No cognitive and/or [facility] functional deficits noted. Patient verbalized understanding of disposition instructions. patient administered narcotics - no. The following High Risk Discharge criteria are identified: None. Admitted to Psych accompanied by tech, via wheelchair, with chart. Condition: stable. No special radiology studies were completed. 15:53 Patient left the ED. [facility] Signatures: Dispatcher [employer] EDLA Karen Bradshaw MD MD sd1 Sue Xavier RN RN j Concetta Bills Reg Reg lg Barney, Michael B RN RN mlb1 Isa Baires PSA PSA Ashanti Srinivasan RN RN hs1 Zainab Chance, MANAGER INVENTORY MANAGEMENT MANAGER INVENTORY MANAGEMENT Niyah Candelaria,RN RN ms18 Danielle Pinto Chart Complete MTDD
[2016-10-20 18:00] VITALS: BP 123/56
[2016-10-20] MEDS: traZODone 50 MG TAB PO PRN (20:59)
[2016-10-21 06:32] VITALS: BP 110/54
[2016-10-21] MEDS: SERTRALINE HCL 25 MG TABLET PO SCH (08:50)
[2016-10-21 18:08] VITALS: BP 118/55
--- NOTE | 2016-10-21 20:30 | IPNPDOC ---
[facility] Progress Note Progress Note DATE OF SERVICE: 10/21/16 Subjective: Patient pleasant, calm, and cooperative with interview. Patient reporting numbness of his scalp and his neck. CT of head in ED was wnl. Patient amenable to films of spine. Patient denies SI/HI. Sleep is fair. appetite is fair. Patient does not report nor does he display symptoms of psychosis on exam. Objective: VITAL SIGNS: wnl LABORATORY DATA: Please see below. 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 Speech: Is of normal rate, rhythm, volume, prosody wnl Language skills are intact. Thought processes: Clear, generally goal-directed, states he experiences periods of confusion secondary to TBI, not noted during today's interaction. Thought content: concerned with parasthesia at scalp and neck Description of associations: Appear intact, states he experiences memory lapses secondary to TBI, was not noted during interaction. Description of abnormal or psychotic thoughts: Denies hallucinations, delusions , preoccupation with violence, homicidal or suicidal ideation, and obsessions. Judgment: Poor to fair. Insight: Poor to fair. Orientation to time, place and person. Recent and remote memory: Appears intact, but reports periods of short and usp memory lapses Attention span and concentration: wnl Language: Normal. Fund of knowledge: Appears adequate. Mood: pretty good. Affect: full. Assessment: 1. Depressive d/o, unspecified 2. TBI (per patient report) 3. rule out bereavement by hx 4. rule out PTSD by hx PLAN: 1. Continue close observation. 2. Continue current psychotropic med regimen. 3. Monitor for spinal film results. 4. Continue with individual and group therapy. TIME SPENT: [30] minutes. Vital Signs Vital Signs Date Time Temp Pulse Resp B/P Pulse Ox O2 Delivery O2 Flow Rate FiO2 10/21/16 18:08 96.8 70 16 118/55 10/18/16 16:29 Room Air Current Medications Current Medications Acetaminophen (Tylenol Tab) 650 mg Q6HP PRN PO HEADACHE or DISCOMFORT; Start at 17:00; Stop 11/17/16 at 16:59 Al Hydrox/Mg Hydrox/Simethicone (Mylanta) 30 ml Q4HP PRN PO HEARTBURN/ INDIGESTION; Start 10/18/16 at 17:00; Stop 11/17/16 at 16:59 Home Med (Med Rec Complete!) ASDIRECTED XX ; Start 10/18/16 at 14:45; Stop at 14:45; Status DC Magnesium Hydroxide (Milk Of Magnesia) 30 ml DAILYPRN PRN PO CONSTIPATION; Start 10/18/16 at 17:00; Stop 11/17/16 at 16:59 Sertraline HCl (Zoloft) 25 mg QAM PO Last administered on 10/21/16 08:50; Start 10/20/16 at 09:00; Stop 11/19/16 at 08:59 Trazodone HCl (Desyrel) 50 mg QHSP PRN PO INSOMNIA Last administered on 20:59; Start 10/18/16 at 17:00; Stop 11/17/16 at 16:59 Allergies Coded Allergies: No Known Allergies (Unverified , 10/18/16) ROVERTO MADERA MD Oct 21, 2016 20:30 Coded Allergies: No Known Allergies (Unverified , 10/18/16) ROVERTO MADERA MD Oct 21, 2016 20:30
--- NOTE | 2016-10-21 20:30 | IPNPDOC ---
[facility] Progress Note Progress Note DATE OF SERVICE: 10/20/16 Subjective: Patient pleasant, calm, and cooperative with interview. He reports episodes of increased irritability. He reports noticeable diminished memory since his recent TBI. Patient acknowledges understanding to discuss vertigo symptoms with unit PA on Sunday morning. Patient denies SI/HI. Sleep is broken, he is amenable to increasing Trazodone dose. Appetite is fair. Patient does not report nor does he display symptoms of psychosis on exam. Objective: VITAL SIGNS: wnl LABORATORY DATA: Please see below. 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 Speech: Is of normal rate, rhythm, volume, prosody wnl Language skills are intact. Thought processes: Clear, generally goal-directed, states he experiences periods of confusion secondary to TBI, not noted during today's interaction. Thought content: Rational, logical. Description of associations: Appear intact, states he experiences memory lapses secondary to TBI, was not noted during interaction. Description of abnormal or psychotic thoughts: Denies hallucinations, delusions , preoccupation with violence, homicidal or suicidal ideation, and obsessions. Judgment: Poor to fair. Insight: Poor to fair. Orientation to time, place and person. Recent and remote memory: Appears intact, but reports periods of short and assisted memory lapses Attention span and concentration: wnl Language: Normal. Fund of knowledge: Appears adequate. Mood: pretty good. Affect: full. Assessment: 1. Depressive d/o, unspecified 2. TBI (per patient report) 3. rule out bereavement by hx 4. rule out PTSD by hx PLAN: 1. Continue close observation. 2. Continue current psychotropic med regimen. 3. Continue with individual and group therapy. TIME SPENT: [30] minutes. Vital Signs Vital Signs Date Time Temp Pulse Resp B/P Pulse Ox O2 Delivery O2 Flow Rate FiO2 10/21/16 18:08 96.8 70 16 118/55 10/18/16 16:29 Room Air Current Medications Current Medications Acetaminophen (Tylenol Tab) 650 mg Q6HP PRN PO HEADACHE or DISCOMFORT; Start at 17:00; Stop 11/17/16 at 16:59 Al Hydrox/Mg Hydrox/Simethicone (Mylanta) 30 ml Q4HP PRN PO HEARTBURN/ INDIGESTION; Start 10/18/16 at 17:00; Stop 11/17/16 at 16:59 Home Med (Med Rec Complete!) ASDIRECTED XX ; Start 10/18/16 at 14:45; Stop at 14:45; Status DC Magnesium Hydroxide (Milk Of Magnesia) 30 ml DAILYPRN PRN PO CONSTIPATION; Start 10/18/16 at 17:00; Stop 11/17/16 at 16:59 Sertraline HCl (Zoloft) 25 mg QAM PO Last administered on 10/21/16 08:50; Start 10/20/16 at 09:00; Stop 11/19/16 at 08:59 Trazodone HCl (Desyrel) 50 mg QHSP PRN PO INSOMNIA Last administered on 20:59; Start 10/18/16 at 17:00; Stop 11/17/16 at 16:59 Allergies Coded Allergies: No Known Allergies (Unverified , 10/18/16) ROVERTO MADERA MD Oct 21, 2016 20:30
[2016-10-21] MEDS: traZODone 50 MG TAB PO PRN (23:01)
[2016-10-22 06:38] VITALS: BP 114/56
--- NOTE | 2016-10-22 07:20 | REP ---
Clinical: Trauma. Fall . Technique: AP, lateral, flexion/extension, bilateral oblique, and open-mouth views. Findings: Alignment and lordosis is maintained. There is no evidence for acute fracture / compression injury or subluxation. No significant degenerative changes are appreciated. Oblique views demonstrate patent neural foramen. Open mouth view demonstrates normal C1-C2 articulation and odontoid process. Impression: Normal cervical spine series. Signed by Jarad Hoover MD 10/22/2016 07:10 A
[2016-10-22] MEDS: SERTRALINE 100 MG TAB PO SCH (08:15)
--- NOTE | 2016-10-22 14:57 | IPNPDOC ---
[facility] Progress Note Progress Note DATE OF SERVICE: 10/22/16 Subjective: Patient pleasant, calm, and cooperative with interview. He reports recurrent episodes of vertigo and will discuss symptoms with unit PA on Sunday morning. Patient denies SI/HI. Sleep is fair, improved on increased Trazodone dose. Appetite is fair. Patient does not report nor does he display symptoms of psychosis on exam. Objective: VITAL SIGNS: wnl LABORATORY DATA: Please see below. 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 Speech: Is of normal rate, rhythm, volume, prosody wnl Language skills are intact. Thought processes: Clear, generally goal-directed, states he experiences periods of confusion secondary to TBI, not noted during today's interaction. Thought content: Rational, logical. Description of associations: Appear intact, states he experiences memory lapses secondary to TBI, was not noted during interaction. Description of abnormal or psychotic thoughts: Denies hallucinations, delusions , preoccupation with violence, homicidal or suicidal ideation, and obsessions. Judgment: Poor to fair. Insight: Poor to fair. Orientation to time, place and person. Recent and remote memory: Appears intact, but reports periods of short and assisted memory lapses Attention span and concentration: wnl Language: Normal. Fund of knowledge: Appears adequate. Mood: good. Affect: full. Assessment: 1. Depressive d/o, unspecified 2. TBI (per patient report) 3. rule out bereavement by hx 4. rule out PTSD by hx PLAN: 1. Continue close observation. 2. Continue current psychotropic med regimen. 3. Continue with individual and group therapy. TIME SPENT: [30] minutes. Vital Signs Vital Signs Date Time Temp Pulse Resp B/P Pulse Ox O2 Delivery O2 Flow Rate FiO2 10/22/16 06:38 96.0 56 18 114/56 10/18/16 16:29 Room Air Current Medications Current Medications Acetaminophen (Tylenol Tab) 650 mg Q6HP PRN PO HEADACHE or DISCOMFORT; Start at 17:00; Stop 11/17/16 at 16:59 Al Hydrox/Mg Hydrox/Simethicone (Mylanta) 30 ml Q4HP PRN PO HEARTBURN/ INDIGESTION; Start 10/18/16 at 17:00; Stop 11/17/16 at 16:59 Home Med (Med Rec Complete!) ASDIRECTED XX ; Start 10/18/16 at 14:45; Stop at 14:45; Status DC Magnesium Hydroxide (Milk Of Magnesia) 30 ml DAILYPRN PRN PO CONSTIPATION; Start 10/18/16 at 17:00; Stop 11/17/16 at 16:59 Sertraline HCl (Zoloft) 25 mg QAM PO Last administered on 10/21/16 08:50; Start 10/20/16 at 09:00; Stop 10/21/16 at 20:37; Status DC Sertraline HCl (Zoloft) 100 mg QAM PO Last administered on 10/22/16 08:15; Start 10/22/16 at 09:00; Stop 11/21/16 at 08:59 Trazodone HCl (Desyrel) 50 mg QHSP PRN PO INSOMNIA Last administered on 23:01; Start 10/18/16 at 17:00; Stop 11/17/16 at 16:59 Allergies Coded Allergies: No Known Allergies (Unverified , 10/18/16) ROVERTO MADERA MD Oct 22, 2016 14:57
[2016-10-22 18:00] VITALS: BP 112/70
[2016-10-22] MEDS: traZODone 50 MG TAB PO PRN (21:25)
[2016-10-22] MEDS ORDERED: traZODone 50 MG TAB PO ONE (22:45)
[2016-10-23 06:56] VITALS: BP 101/55
[2016-10-23] MEDS: SERTRALINE 100 MG TAB PO SCH (08:17)
--- NOTE | 2016-10-23 20:14 | IPNPDOC ---
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 Patient reported at the time he felt symptoms were related to missing his mother who was reportedly killed by his father who then took his own life when patient was age 14. Patient appears to be adjusting to unit, is attending groups, and is now visible and socializing with peers. Patient reported reduced symptoms of depression, indicated he is experiencing new symptoms of anxiety which he described as "I feel caffeinated." Patient notes symptoms began immediately after recent increase in his Zoloft medication over weekend. Patient denies current suicidal and homicidal ideation, denies urge to engage in self- injurious behavior, and denies audiovisual hallucinations. Patient indicates he is sleeping better with the use of trazodone, reports ongoing challenges with concentration and focus, states his appetite has stabilized, and he indicates his energy level is improving. Patient reiterates today when prepared for discharge he would [facility] and states he will participate in outpatient behavioral health services. 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 Patient denies history of seizure, reports history of left leg surgery, right forearm surgery, 09/20/[address] no acute abnormality 10/19/16 EKG SINUS RHYTHM WITH FIRST DEGREE AV BLOCK ST ELEVATION, PROBABLY EARLY REPOLARIZATION 10/21/16 cervical spine x-ray within normal limits EEG results pending NEW TEST RESULTS: LABORATORY DATA: Please see below. Labs on admission indicated elevated RBC, RDW, glucose and low Hgb, HCT, MCV, MCHC, MCH. PA is aware is evaluating. 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 Thought processes: Clear, generally goal-directed, states he experiences periods of confusion secondary to TBI, not noted during today's interaction. Thought content: Rational, logical. Abstract reasoning: Requires further assessment. Description of associations: Appear intact, states he experiences confusion secondary to TBI, was not noted during interaction. Description of abnormal or psychotic thoughts: Denies hallucinations, delusions , preoccupation with violence, homicidal or suicidal ideation, and obsessions]. Judgment: Poor. Insight: Poor. Orientation to time, place and person. Recent and remote memory: Appears intact, but reports periods of confusion, not noted Attention span and concentration: Limited. Language: Normal. Fund of knowledge: Appears adequate. Mood: "I feel pretty good, anxious sometimes." No sign of irritability, agitation, or mood lability noted. Affect: Constricted but brightens at times, congruent with mood. 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 Patient appears to be adjusting to unit, is more visible and is attending groups. office coordinator continues to request information related to patient's TBI status and to request collateral information from [facility] to facilitate appropriate treatment and discharge planning. Patient denies current suicidal or homicidal ideation and is able to verbalize how to access supportive services on the inpatient unit if needed. Patient indicates current medication regimen seems to be helping with symptoms of depression, however, he indicated he is reporting symptoms of anxiety. It appears patient's Zoloft was increased from 25 mg to 100 mg over weekend, will lower Zoloft dose to 50 mg by mouth every morning and will monitor need for titration. Patient indicates trazodone is effective for sleep at current dose, denies medication side effects. Will monitor patient's response to medication, monitor for medication side effects, will evaluate patient's safety, resolution of suicidal ideation, and discharge readiness. Patient indicates, when ready, he would [facility] to participate in outpatient psychotherapy and medication management services. MANAGEMENT PLAN: Reduce Zoloft to 50 mg po q am. Continue trazodone 50 mg po hs PRN insomnia. Awaiting EEG results, cervical spine x-ray ordered by weekend provider results received - within normal limits Maintain safety precautions Patient to attend groups and participate in unit programming to develop coping strategies Engage patient in discharge planning process and arrange meeting with command to evaluate safe discharge planning when appropriate Patient to follow up with [facility] upon discharge TIME SPENT: 15 minutes Vital Signs Vital Signs Date Time Temp Pulse Resp B/P Pulse Ox O2 Delivery O2 Flow Rate FiO2 10/23/16 06:56 95.9 55 18 101/55 10/18/16 16:29 Room Air Current Medications Current Medications Acetaminophen (Tylenol Tab) 650 mg Q6HP PRN PO HEADACHE or DISCOMFORT; Start at 17:00; Stop 11/17/16 at 16:59 Al Hydrox/Mg Hydrox/Simethicone (Mylanta) 30 ml Q4HP PRN PO HEARTBURN/ INDIGESTION; Start 10/18/16 at 17:00; Stop 11/17/16 at 16:59 Home Med (Med Rec Complete!) ASDIRECTED XX ; Start 10/18/16 at 14:45; Stop at 14:45; Status DC Magnesium Hydroxide (Milk Of Magnesia) 30 ml DAILYPRN PRN PO CONSTIPATION; Start 10/18/16 at 17:00; Stop 11/17/16 at 16:59 Sertraline HCl (Zoloft) 25 mg QAM PO Last administered on 10/21/16 08:50; Start 10/20/16 at 09:00; Stop 10/21/16 at 20:37; Status DC Sertraline HCl (Zoloft) 50 mg QAM PO ; Start 10/24/16 at 09:00; Stop 11/23/16 at 08:59 Sertraline HCl (Zoloft) 100 mg QAM PO Last administered on 10/23/16 08:17; Start 10/22/16 at 09:00; Stop 10/23/16 at 19:48; Status DC Trazodone HCl (Desyrel) 50 mg QHSP PRN PO INSOMNIA Last administered on 21:25; Start 10/18/16 at 17:00; Stop 11/17/16 at 16:59 Allergies Coded Allergies: No Known Allergies (Unverified , 10/18/16) Charlene Bella Oct 23, 2016 20:14
[2016-10-23] MEDS: traZODone 50 MG TAB PO PRN (21:39)
--- NOTE | 2016-10-24 05:21 | EEG ---
DATE OF PROCEDURE: 10/23/2016 REFERRING PHYSICIAN: Dr. Vadim Barahona DIAGNOSIS: History of traumatic brain injury, dizziness, confusion, and cognitive changes, concern for seizures. EEG NUMBER: [id number]. 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 This EEG was done to rule out epileptic potential. He is currently taking Zoloft, trazodone, etc. TECHNICAL DESCRIPTION: This digital EEG was recorded by 21 scalp, ear and two EKG electrodes and was reviewed in bipolar and referential montages following reformatting in 10-20 international electrode placement system. INTERPRETATION: Patient was noted to be in awake and drowsy states during this EEG. Resting awake background consisted of well-formed posterior dominant rhythm with anterior/posterior gradient comprising of 9 Hz alpha activity measuring 50-100 microvolts in amplitude, which was symmetric and reactive to eye opening. Attenuation of posterior dominant was seen during transition into drowsiness. Stage I and II sleep were reviewed and were symmetric bilaterally. Hyperventilation elicited mild theta slowing of background rhythm. Photic stimulation at 3-30 Hz elicited symmetric photic driving especially at mid frequencies. EKG revealed normal sinus rhythm. No focal, lateralizing or epileptiform abnormalities were seen. No clinical or electrographic seizures were recorded. CONCLUSION: This EEG in awake, drowsy states, stage I and II sleep is within normal limits. MTDD
[2016-10-24 06:33] VITALS: BP 123/58
[2016-10-24] MEDS: SERTRALINE HCL 50 MG TAB PO SCH (08:43)
[2016-10-24 12:05] VITALS: BP_SYST 114; BP_SYST 122; BP_SYST 124; BP_DIAS 64; BP_DIAS 71; BP_DIAS 80
--- NOTE | 2016-10-24 16:40 | IPNPDOC ---
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 Patient reported at the time he felt symptoms were related to missing his mother who was reportedly killed by his father who then took his own life when patient was age 14. Patient continues to adjust to unit, is attending groups, and is now visible and socializing with peers. Patient reported reduced symptoms of depression (2/10), and today reports reduced symptoms of anxiety (3/10) and feeling "caffeinated," reports slight improvement to concentration and focus, denies symptoms of physical pain. Patient denies changes to memory since prior to hospitalization, adds memory challenges have been stable since most recent TBI. Patient denies current suicidal and homicidal ideation, denies urge to engage in self-injurious behavior, and denies audiovisual hallucinations. Patient indicates he continues to sleep well with trazodone, denies nightmares, notes he had difficulty with sleep maintenance prior to hospitalization, though notes he was always able to sleep well on weekends. Patient states his appetite has stabilized, and he indicates his energy level is improving. Patient reiterates today when prepared for discharge he would like to return to [facility] and states he will participate in outpatient behavioral health services. 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 Patient denies history of seizure, reports history of left leg surgery, right forearm surgery. 09/20/[address] no acute abnormality 10/19/16 EKG SINUS RHYTHM WITH FIRST DEGREE AV BLOCK ST ELEVATION, PROBABLY EARLY REPOLARIZATION 10/21/16 cervical spine x-ray within normal limits 10/23/16 EEG results within normal limits NEW TEST RESULTS: LABORATORY DATA: Please see below. Labs on admission indicated elevated RBC, RDW, glucose and low Hgb, HCT, MCV, MCHC, MCH. Recent results indicates possibility of thalassemia, pH continues to monitor and evaluate and has indicated thalassemia is not impacting patient's psychiatric status and will not impact patient's preparedness for discharge. 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 Thought processes: Clear, generally goal-directed, states he experiences periods of confusion secondary to TBI, not noted during today's interaction. Thought content: Rational, logical. Abstract reasoning: Appears intact, exhibits what appears to be occasional delay in processing Description of associations: Appear intact, states he experiences confusion secondary to TBI, was not noted during interaction. Description of abnormal or psychotic thoughts: Denies hallucinations, delusions , preoccupation with violence, homicidal or suicidal ideation, and obsessions. Judgment: Fair, appears to be improving Insight: Fair, appears to be improving Orientation to time, place and person. Recent and remote memory: Appears intact, but reports periods of confusion, not noted Attention span and concentration: Limited. Language: Normal. Fund of knowledge: Appears adequate. Mood: "I feel good, less restless today, less caffeinated." No sign of irritability, agitation, or mood lability noted. Affect: Constricted but brightens at times, congruent with mood. DIAGNOSES: Unspecified mood disorder, TBI, rule out adjustment disorder, rule out MDD, rule out bereavement, rule out PTSD ASSESSMENT: Patient appears to be adjusting to unit, is more visible and is attending groups. Patient denies current suicidal or homicidal ideation and is able to verbalize how to access supportive services on the inpatient unit if needed. Patient indicates current medication regimen seems to be helping with symptoms of depression, however, yesterday indicated increase in symptoms of anxiety, reports symptoms are improved today with recent dose decrease to Zoloft. We'll continue to monitor patient's response to change in Zoloft dose and we'll monitor for need for titration. Patient indicates trazodone is effective for sleep at current dose, denies medication side effects. Will monitor patient's response to medication, monitor for medication side effects, will evaluate patient's safety, resolution of suicidal ideation, and discharge readiness. Patient indicates, when ready, he would like to return to [facility] to participate in outpatient psychotherapy and medication management services. marketing operations coordinator is attempting to arrange to have command meeting for with discharge likely to follow if patient's symptoms continue to improve. MANAGEMENT PLAN: continue Zoloft 50 mg po q am. Continue trazodone 50 mg po hs PRN insomnia. Maintain safety precautions Patient to attend groups and participate in unit programming to develop coping strategies Engage patient in discharge planning process and arrange meeting with command to evaluate safe discharge planning when appropriate Patient to follow up with [facility] upon discharge TIME SPENT: 35 minutes Vital Signs Vital Signs Date Time Temp Pulse Resp B/P Pulse Ox O2 Delivery O2 Flow Rate FiO2 10/24/16 12:05 68 16 122/71 10/24/16 06:33 96.0 10/18/16 16:29 Room Air Current Medications Current Medications Acetaminophen (Tylenol Tab) 650 mg Q6HP PRN PO HEADACHE or DISCOMFORT; Start at 17:00; Stop 11/17/16 at 16:59 Al Hydrox/Mg Hydrox/Simethicone (Mylanta) 30 ml Q4HP PRN PO HEARTBURN/ INDIGESTION; Start 10/18/16 at 17:00; Stop 11/17/16 at 16:59 Home Med (Med Rec Complete!) ASDIRECTED XX ; Start 10/18/16 at 14:45; Stop at 14:45; Status DC Magnesium Hydroxide (Milk Of Magnesia) 30 ml DAILYPRN PRN PO CONSTIPATION; Start 10/18/16 at 17:00; Stop 11/17/16 at 16:59 Sertraline HCl (Zoloft) 25 mg QAM PO Last administered on 10/21/16 08:50; Start 10/20/16 at 09:00; Stop 10/21/16 at 20:37; Status DC Sertraline HCl (Zoloft) 50 mg QAM PO Last administered on 10/24/16 08:43; Start 10/24/16 at 09:00; Stop 11/23/16 at 08:59 Sertraline HCl (Zoloft) 100 mg QAM PO Last administered on 10/23/16 08:17; Start 10/22/16 at 09:00; Stop 10/23/16 at 19:48; Status DC Trazodone HCl (Desyrel) 50 mg QHSP PRN PO INSOMNIA Last administered on t 21:39; Start 10/18/16 at 17:00; Stop 11/17/16 at 16:59 Allergies Coded Allergies: No Known Allergies (Unverified , 10/18/16) Charlene Bella Oct 24, 2016 16:40
[2016-10-24 18:00] VITALS: BP 98/53
[2016-10-24] MEDS: traZODone 50 MG TAB PO PRN (23:07)
[2016-10-25 06:36] VITALS: BP 96/49
[2016-10-25] MEDS: SERTRALINE HCL 50 MG TAB PO SCH (08:24)
[2016-10-25 18:00] VITALS: BP 103/56
--- NOTE | 2016-10-25 18:27 | IPNPDOC ---
[facility] Progress Note Progress Note DATE OF SERVICE: 10/25/16 HISTORY: Em Physician met with patient today to assess treatment progress on inpatient unit. Patient continues to adjust to unit, is attending groups, and is now visible and socializing with peers. Patient denies symptoms of anxiety and depression, denies feeling "caffeinated," reports slight improvement to concentration and focus, denies symptoms of physical pain. Patient denies changes to memory since prior to hospitalization, adds memory challenges have been stable since most recent TBI. Patient denies current suicidal and homicidal ideation, denies urge to engage in self-injurious behavior, and denies audiovisual hallucinations. Patient denies sleep challenges with use of trazodone and denies nightmares symptoms. Patient reiterates today that prior to hospitalization he had challenges with sleep during the week, but denies experiencing problems with sleep on weekends, was encouraged to utilize sleep hygiene strategies. Patient states his appetite and energy levels have improved and stabilized. Patient states today he feels prepared for discharge and would like to return to [facility] where he will participate in outpatient behavioral health services. Patient informs insurance underwriter today that he is aware his unit will be deploying to [facility] in the near future noting he prefers not to to deploy to with unit and is comfortable remaining behind to participate in behavioral health services. Patient also inquires during today's interaction if his stay in the hospital will become part of his [facility] medical records, and when asked reason for inquiry patient states, "I just want to make sure it's in my record for [facility]." Em Physician educated patient on procedure for requesting medical records if desired. Patient is aware chain of command meeting is scheduled for tomorrow with discharge to follow if appropriate. 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 Patient denies history of seizure, reports history of left leg surgery, right forearm surgery. 09/20/[address] no acute abnormality 10/19/16 EKG SINUS RHYTHM WITH FIRST DEGREE AV BLOCK ST ELEVATION, PROBABLY EARLY REPOLARIZATION 10/21/16 cervical spine x-ray within normal limits 10/23/16 EEG results within normal limits NEW TEST RESULTS: LABORATORY DATA: Please see below. Labs on admission indicated elevated RBC, RDW, glucose and low Hgb, HCT, MCV, MCHC, MCH. Recent results indicates possibility of thalassemia, pH continues to monitor and evaluate and has indicated thalassemia is not impacting patient's psychiatric status and will not impact patient's preparedness for discharge. 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 Thought processes: Clear, goal-directed, states he experiences periods of confusion secondary to TBI, not noted during today's interaction. Thought content: Rational, logical. Abstract reasoning: Appears intact, exhibits what appears to be occasional delay in processing Description of associations: Appear intact, states he experiences intermittent confusion secondary to TBI, was not noted during interaction. Description of abnormal or psychotic thoughts: Denies hallucinations, delusions , preoccupation with violence, homicidal or suicidal ideation, and obsessions. Judgment: Adequate Insight: Adequate Orientation to time, place and person. Recent and remote memory: Appears intact, but reports periods of confusion, not noted at time of interaction Attention span and concentration: Reports limited, not noted at time of interaction Language: Normal. Fund of knowledge: Appears adequate. Mood: "I feel good." No sign of irritability, agitation, or mood lability noted. Affect: Full range, brightens frequently inappropriately, congruent with mood. DIAGNOSES: Unspecified mood disorder, TBI, rule out adjustment disorder, rule out MDD, rule out bereavement, rule out PTSD ASSESSMENT: Patient appears to be adjusting to unit, is more visible and is attending groups. Patient denies current suicidal or homicidal ideation and is able to verbalize how to access supportive services on the inpatient unit if needed. Patient indicates current medication regimen is "very helpful," denies symptoms of depression and anxiety and denies medication side effects. Patient indicates trazodone is effective for sleep at current dose, denies medication side effects. Will continue to monitor patient's response to medication, monitor for medication side effects, will evaluate patient's safety, and we'll prepare patient for discharge after chain of command meeting scheduled to take place tomorrow morning. Patient indicates he would like to return to [facility] to resume treatment with TBI clinic and participate in outpatient psychotherapy and medication management services, will also recommend IOP evaluation. MANAGEMENT PLAN: continue Zoloft 50 mg po q am and trazodone 50 mg po hs PRN insomnia. Maintain safety precautions Patient to attend groups and participate in unit programming to develop coping strategies Engage patient in discharge planning process and arrange meeting with command to evaluate safe discharge planning when appropriate Patient to follow up with [facility] and TBI clinic upon discharge TIME SPENT: 25 minutes Vital Signs Vital Signs Date Time Temp Pulse Resp B/P Pulse Ox O2 Delivery O2 Flow Rate FiO2 10/25/16 06:36 96.0 59 16 96/49 Laboratory Data 24H Labs Laboratory Tests 2 10/25/16 12:46: Current Medications Current Medications Acetaminophen (Tylenol Tab) 650 mg Q6HP PRN PO HEADACHE or DISCOMFORT; Start at 17:00; Stop 11/17/16 at 16:59 Al Hydrox/Mg Hydrox/Simethicone (Mylanta) 30 ml Q4HP PRN PO HEARTBURN/ INDIGESTION; Start 10/18/16 at 17:00; Stop 11/17/16 at 16:59 Home Med (Med Rec Complete!) ASDIRECTED XX ; Start 10/18/16 at 14:45; Stop at 14:45; Status DC Magnesium Hydroxide (Milk Of Magnesia) 30 ml DAILYPRN PRN PO CONSTIPATION; Start 10/18/16 at 17:00; Stop 11/17/16 at 16:59 Sertraline HCl (Zoloft) 25 mg QAM PO Last administered on 10/21/16 08:50; Start 10/20/16 at 09:00; Stop 10/21/16 at 20:37; Status DC Sertraline HCl (Zoloft) 50 mg QAM PO Last administered on 10/25/16 08:24; Start 10/24/16 at 09:00; Stop 11/23/16 at 08:59 Sertraline HCl (Zoloft) 100 mg QAM PO Last administered on 10/23/16 08:17; Start 10/22/16 at 09:00; Stop 10/23/16 at 19:48; Status DC Trazodone HCl (Desyrel) 50 mg QHSP PRN PO INSOMNIA Last administered on 23:07; Start 10/18/16 at 17:00; Stop 11/17/16 at 16:59 Allergies Coded Allergies: No Known Allergies (Unverified , 10/18/16) Charlene Bella Oct 25, 2016 18:27
[2016-10-25] MEDS: traZODone 50 MG TAB PO PRN (22:52)
[2016-10-26 06:22] VITALS: BP 117/59
[2016-10-26] MEDS: SERTRALINE HCL 50 MG TAB PO SCH (08:02)
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
[2016-10-26] MEDS ORDERED: ZOLO50TA PO (08:55)
[2016-10-26] MEDS ORDERED: TRAZO50TA PO (08:55)
[2016-10-28 00:16] LABS: HEMOGLOBIN A 95.1 % (94.0-98.0)
== END 2016-10-26 11:45 | disposition home or self-care (01) | DRG 881 ==
LOC: M ED 12:19 → M PSY 16:10
PROVIDERS: ADMIT Psychiatry & Neurology Psychiatry; ATTEND Psychiatry & Neurology Psychiatry
DX: F32.9 Major depressive disorder, single episode, unspecified (principal); F43.10 Post-traumatic stress disorder, unspecified; F43.21 Adjustment disorder with depressed mood; D64.9 Anemia, unspecified; R42 Dizziness and giddiness; Z81.8 Family history of other mental and behavioral disorders; Z87.820 Personal history of traumatic brain injury; Z91.5 Personal history of self-harm